=== PATIENT | male | born 1960 | race Hispanic/Latino ===

== ENCOUNTER 2019-03-15 15:06 | Inpatient (IN) | payer OTHER ==
[2019-03-15] MEDS ORDERED: NA CHLORIDE 0.9% 2,000 ML ONE (15:39)
[2019-03-15] MEDS ORDERED: CEFTRIAXONE 1000 MG/VIAL ONE ×2 (15:44→19:28)
[2019-03-15] MEDS ORDERED: NA CHLORIDE 0.9% 500 ML ONE (15:44)
[2019-03-15 15:49] LABS: Urine Blood NEGATIVE (NEG); Urine Glucose NEGATIVE (NEG); Urine Protein NEGATIVE (NEG); Urine Specific Gravity 1.015 (1.005-1.030)
[2019-03-15] MEDS ORDERED: FENTANYL CITR 100 MCG/2 ML ONE (15:51)
[2019-03-15] MEDS ORDERED: IBUPROFEN 200 MG TAB PO ONE (15:51)
[2019-03-15] MEDS ORDERED: Levofloxacin500mg IV 500 MG/100 ML BAG IV ONE (15:51)
[2019-03-15] MEDS ORDERED: IBUPROFEN 400 MG TAB ONE (15:51)
[2019-03-15 15:57] LABS: Absolute Lymphocytes (CBC) 0.9 K/uL (0.7-4.9); Basophils % 0.3 % (0-1.3); Hematocrit 41.3 % (39.6-49.0); MPV 9.2 fL (7.6-11.3); RBC Red Blood Cell Count 5.07 M/uL (4.33-5.43)
[2019-03-15 16:06] LABS: Protime INR 1.19
[2019-03-15 16:17] LABS: ALT/SGPT 47 U/L (12-78); AST/SGOT 20 U/L (15-37); Albumin 3.9 g/dL (3.4-5.0); Alkaline Phosphatase 100 U/L (45-117); BUN Blood Urea Nitrogen 14 mg/dL (7-18); Bicarbonate 25 mmol/L (21-32); Bilirubin Direct 0.2 mg/dL (0-0.2); Bilirubin Total 0.8 mg/dL (0.2-1.0); CKMB Creatine Kinase MB < 1.0 ng/mL (0.3-3.6); Creatine Phosphokinase 68 U/L (39-308); Glucose Level 200 mg/dL (74-106); Lipase 104 U/L (73-393); Potassium 3.6 mmol/L (3.5-5.1); Protein, Total 7.9 g/dL (6.4-8.2); Sodium Level 136 mmol/L (136-145); Troponin (Emerg Dept Use Only) < 0.02 ng/mL (0.0-0.045)
[2019-03-15 16:37] LABS: Urine Bacteria 20-50 /HPF (NONE SEEN); Urine Culture Reflex Order REFLEXED
--- NOTE | 2019-03-15 16:44 | RAD REPORT ---
EXAM DESCRIPTION: RAD - Chest Single View - 03/15/2019 4:15 pm CLINICAL HISTORY: Sepsis, fever COMPARISON: None. TECHNIQUE: AP portable chest image was obtained 1607 hours . FINDINGS: Lungs are clear. Heart and vasculature are normal. No measurable pleural effusion and no p neumothorax. No acute bony abnormality seen. No acute aortic findings suspected. IMPRESSION: No acute cardiopulmonary process.
--- NOTE | 2019-03-15 17:03 | RAD REPORT ---
EXAM DESCRIPTION: CT - Abdomen Pelvis W Contrast - 03/15/2019 4:46 pm CLINICAL HISTORY: urosepsis, abdominal pain COMPARISON: CT stone December 2016 TECHNIQUE: Biphasic, helical CT imaging of the abdomen and pelvis was performed following 100 ml non -ionic IV contrast. Oral contrast was given. All CT scans are performed using dose optimization technique as appropriate and may include automated exposure control or mA/KV adjustment according to patient size. FINDINGS: No suspicious findings in the lung bases. Mild diffuse fatty infiltration of the liver. No focal liver abnormality. Numerous granulomatous calc ifications in the spleen. No acute spleen or pancreatic process. Pancreatic parenchymal volume is dec reased in the body and tail. Gallbladder and biliary tree are also without suspicious finding. Symmetric renal function is seen with no hydronephrosis or suspicious renal mass. No pyelonephritis o r acute parenchymal process. Partially filled urinary bladder does not appear grossly abnormal. No cl early thickened or abnormal bladder torres. No bladder calculus within the lumen. There is calcificati on in the wall anterior dome. Prostate gland is enlarged and heterogeneous. There is a congested or e dematous appearance. No dilated bowel loops or bowel wall thickening. Sigmoid diverticulosis is present without diverticul itis. No free air, free fluid or inflammatory stranding. No hernia, mass or bulky lymphadenopathy. No suspicious bony findings. IMPRESSION: No pyelonephritis or acute renal parenchymal process. No definitive CT evidence for cystitis. Prostatitis is suspected and needs correlation with clinical findings and laboratory findings. No acute GI process. Liver shows fatty infiltration.
--- NOTE | 2019-03-15 17:17 | ER ---
Nurse's Notes [facility] Name: Jose Weaver Age: 58 yrs Sex: Male : 1960 Arrival Date: 03/15/2019 Time: 15:10 Bed 25 Private MD: Jaret Rao Diagnosis: Acute prostatitis;Sepsis, unspecified organism Presentation: 03/15 15:23 Presenting complaint: Patient states: burning with urination and off and on inability ss to void x 1 week. Fever that began last night. Transition of care: patient was not received from another setting of care. Onset of symptoms was March 05, 2019. Risk Assessment: Do you want to hurt yourself or someone else? Patient reports no desire to harm self or others. Initial Sepsis Screen: Does the patient meet any 2 criteria? Temp <36.0*C (96.8*F)) or > 38.3*C (100.9*F). HR > 90 bpm. Does the patient have a suspected source of infection? Yes: Dysuria/Frequency/Urgency/UTI. Care prior to arrival: None. 15:23 Method Of Arrival: Ambulatory ss 15:23 Acuity: JOHN 2 ss Historical: - Allergies: 15:22 No Known Allergies; ss - PMHx: 15:22 GERD; ss - PSHx: 15:22 None; ss - Immunization history:: Adult Immunizations up to date. - Social history:: Smoking status: Patient/guardian denies using tobacco. - Ebola Screening: : Patient denies exposure to infectious person Patient denies travel to an Ebola-affected area in the 21 days before illness onset. Screenin:00 Abuse screen: Denies threats or abuse. Denies injuries from another. Nutritional rv screening: No deficits noted. Tuberculosis screening: No symptoms or risk factors identified. Fall Risk None identified. Sepsis Screening: . Infection: Patient has suspected or documented infection. SIRS - Systemic Inflammatory Response Syndrome: 2 or more indicates positive screen: [temperature greater than or equal to 100.9F or less than or equal to 96.8F] [heart rate greater than 90 beats per minute] [respiratory rate is greater than 20 breaths per minute]. Assessment: 16:08 Reassessment: Kayleigh Tee NP notified of critical lab value. Lactate 2.2. ss 16:59 General: Appears in no apparent distress. comfortable, Behavior is calm, cooperative. rv Pain: Complains of pain in back. Neuro: Level of Consciousness is awake, alert, obeys commands, Oriented to person, place, time, situation. Cardiovascular: Patient's skin is warm and dry. Respiratory: Airway is patent. GI: No signs and/or symptoms were reported involving the gastrointestinal system. : Reports pain with urination. EENT: No signs and/or symptoms were reported regarding the EENT system. Derm: Skin is intact. Musculoskeletal: No signs and/or symptoms reported regarding the musculoskeletal system. 18:34 Reassessment: Patient appears in no apparent distress at this time. Patient and/or rv family updated on plan of care and expected duration. Pain level reassessed. Patient is alert, oriented x 3, equal unlabored respirations, skin warm/dry/pink. patient appears to be more comfortable after giving the IV bolus of fluids. Vital Signs: 15:21 BP 143 / 96; Pulse 112; Resp 20; Temp 102.3(O); Pulse Ox 95% on R/A; Weight 84.37 kg; ss Height 6 ft. 0 in. (182.88 cm); Pain 8/10; 16:23 Temp 100.2(O); rv 16:24 Pain 6/10; rv 16:25 BP 139 / 86; Pulse 105; Resp 26; Temp 100.2(O); Pulse Ox 99% on R/A; mh5 16:52 BP 138 / 74; Pulse 102; Resp 22; Temp 102.5(O); Pulse Ox 99% on R/A; mh5 18:00 BP 152 / 84; Pulse 99; Resp 18; Pulse Ox 99% on R/A; rv 18:30 BP 148 / 80; Pulse 103; Resp 18; Pulse Ox 99% on R/A; rv 15:21 Body Mass Index 25.23 (84.37 kg, 182.88 cm) ED Course: 15:10 Patient arrived in ED. mr 15:10 Jaret Rao MD is Private Physician. mr 15:23 Triage completed. ss 15:26 Kayleigh Tee F[facility]-C [facility]. snw 15:26 Pedro Guzmán MD is Attending Physician. snw 15:30 Inserted saline lock: 20 gauge in left antecubital area, using aseptic technique. Blood ss collected. 15:31 Roman Marcum, JUANJO is Primary Nurse. rv 15:45 Inserted saline lock: 22 gauge in right hand, using aseptic technique. Blood collected. ss 16:12 Radiology exam delayed due to lab results not completed at this time. (BUN/Creatinine). nj 16:17 Chest Single View XRAY In Process Unspecified. EDMS 16:25 Patient has correct armband on for positive identification. Bed in low position. Call mh5 light in reach. Side rails up X 1. Warm blanket given. environmental monitoring specialist on. Pulse ox on. NIBP on. 16:46 CT Abd/Pelvis - IV Contrast Only In Process Unspecified. EDMS 17:01 Splint/sling/ice applied as appropriate. Patient placed in the treatment room, on a rv stretcher, on cardiac catheterization technologist, on pulse oximetry, Patient notified of wait time. 17:16 Cristhian Frazier MD is Hospitalizing Provider. snw 18:34 No provider procedures requiring assistance completed. Patient admitted, IV remains in rv place. Administered Medications: 15:37 Drug: fentaNYL (PF) 25 mcg {Note: rass 0.} Route: IVP; Site: left antecubital; rv 16:24 Follow up: Pain 6/10 Adult; Response: No adverse reaction; Marked relief of symptoms; rv Pain is decreased; RASS: Alert and Calm (0) 15:45 Drug: NS 0.9% (30 ml/kg) 30 ml/kg Route: IV; Rate: bolus; Site: left antecubital; rv 15:53 Drug: Motrin 600 mg Route: PO; rv 16:23 Follow up: Temp 100.2 Oral; Response: Temperature is decreased rv 15:53 Drug: Rocephin 2 grams Route: IV; Rate: calculated rate; Site: left antecubital; rv 16:24 Follow up: IV Status: Completed infusion rv 16:22 Drug: LevaQUIN 500 mg Volume: 100 ml; Route: IVPB; Infused Over: 60 mins; Site: right rv hand; Outcome: 17:17 Decision to Hospitalize by Provider. snw 18:35 Admitted to Tele accompanied by tech, via wheelchair, room 406, with chart, Report rv called to Hollie GEIGER 18:35 Condition: good 18:35 Instructed on the need for admit. 18:35 Patient left the ED. rv Signatures: Dispatcher [employer] EDMS Kayleigh Tee, CANDIE-C EXTENSION DIVISION DIRECTOR-Paulw Elizabeth Cabrera Shelby, RN RN Som Knowles [place] [id number] Roman Marcum RN RN rv
--- NOTE | 2019-03-15 17:18 | EDPHYS ---
Physician Documentation [facility] Name: Jose Waever Age: 58 yrs Sex: Male : 1960 Arrival Date: 03/15/2019 Time: 15:10 Bed 25 Private MD: Jaret Rao ED Physician Pedro Guzmán HPI: 03/15 15:39 This 58 yrs old Male presents to ER via Ambulatory with complaints of Urinary snw Problem. 15:39 dysuria x 1 week, bodyaches and fever since last pm. Onset: The symptoms/episode snw began/occurred gradually, 1 week(s) ago, and became persistent. Severity of symptoms: At their worst the symptoms were moderate severe. The patient has not experienced similar symptoms in the past. sees Dr. Rao. Historical: - Allergies: 15:22 No Known Allergies; ss - PMHx: 15:22 GERD; ss - PSHx: 15:22 None; ss - Immunization history:: Adult Immunizations up to date. - Social history:: Smoking status: Patient/guardian denies using tobacco. - Ebola Screening: : Patient denies exposure to infectious person Patient denies travel to an Ebola-affected area in the 21 days before illness onset. ROS: 15:38 Eyes: Negative for injury, pain, redness, and discharge, ENT: Negative for injury, snw pain, and discharge, Neck: Negative for injury, pain, and swelling, Cardiovascular: Negative for chest pain, palpitations, and edema, Respiratory: Negative for shortness of breath, cough, wheezing, and pleuritic chest pain, Abdomen/GI: Negative for abdominal pain, nausea, vomiting, diarrhea, and constipation, Back: Negative for injury and pain, MS/Extremity: Negative for injury and deformity, Skin: Negative for injury, rash, and discoloration, Neuro: Negative for headache, weakness, numbness, tingling, and seizure, Psych: Negative for depression, anxiety, suicide ideation, homicidal ideation, and hallucinations. 15:38 Constitutional: Positive for body aches, fatigue, fever, malaise, poor PO intake. 15:38 : Positive for urinary symptoms, urinary frequency, small amounts, hematuria. Exam: 15:37 Head/Face: Normocephalic, atraumatic. Eyes: Pupils equal round and reactive to light, snw extra-ocular motions intact. Lids and lashes normal. Conjunctiva and sclera are non-icteric and not injected. Cornea within normal limits. Periorbital areas with no swelling, redness, or edema. ENT: Nares patent. No nasal discharge, no septal abnormalities noted. Tympanic membranes are normal and external auditory canals are clear. Oropharynx with no redness, swelling, or masses, exudates, or evidence of obstruction, uvula midline. Mucous membranes moist. Neck: Trachea midline, no thyromegaly or masses palpated, and no cervical lymphadenopathy. Supple, full range of motion without nuchal rigidity, or vertebral point tenderness. No Meningismus. Chest/axilla: Normal chest wall appearance and motion. Nontender with no deformity. No lesions are appreciated. 15:37 Respiratory: Lungs have equal breath sounds bilaterally, clear to auscultation and percussion. No rales, rhonchi or wheezes noted. No increased work of breathing, no retractions or nasal flaring. Abdomen/GI: Soft, non-tender, with normal bowel sounds. No distension or tympany. No guarding or rebound. No evidence of tenderness throughout. Back: No spinal tenderness. No costovertebral tenderness. Full range of motion. 15:37 Constitutional: The patient appears alert, awake, febrile, uncomfortable. 15:37 Cardiovascular: Rate: tachycardic, Pulses: no pulse deficits are appreciated, Edema: is not appreciated. 15:37 Skin: Appearance: Color: normal in color, Temperature: hot, Moisture: dry. 15:37 Neuro: Orientation: is normal, Mentation: is normal, Memory: is normal, seizure activity, is not displayed by the patient. Vital Signs: 15:21 BP 143 / 96; Pulse 112; Resp 20; Temp 102.3(O); Pulse Ox 95% on R/A; Weight 84.37 kg; ss Height 6 ft. 0 in. (182.88 cm); Pain 8/10; 16:23 Temp 100.2(O); rv 16:24 Pain 6/10; rv 16:25 BP 139 / 86; Pulse 105; Resp 26; Temp 100.2(O); Pulse Ox 99% on R/A; mh5 16:52 BP 138 / 74; Pulse 102; Resp 22; Temp 102.5(O); Pulse Ox 99% on R/A; mh5 18:00 BP 152 / 84; Pulse 99; Resp 18; Pulse Ox 99% on R/A; rv 18:30 BP 148 / 80; Pulse 103; Resp 18; Pulse Ox 99% on R/A; rv 15:21 Body Mass Index 25.23 (84.37 kg, 182.88 cm) ss MDM: 15:28 Patient medically screened. marcio 16:40 Data reviewed: vital signs, nurses notes. Data interpreted: Pulse oximetry: on room air snw is 99 %. Interpretation: normal. Counseling: I had a detailed discussion with the patient and/or guardian regarding: the historical points, exam findings, and any diagnostic results supporting the discharge/admit diagnosis, the presence of at least one elevated blood pressure reading (>120/80) during this emergency department visit, lab results, the need for further work-up and treatment in the hospital. Physician consultation: Cristhian Frazier MD was called at 16:41, regarding admission, to the medical/surgical unit. 03/15 15:28 Order name: Urine Culture [facility] 03/15 15:28 Order name: Basic Metabolic Panel; Complete Time: 16:18 snw 03/15 15:28 Order name: Blood Culture Adult (2) snw 03/15 15:28 Order name: CBC with Diff snw 03/15 15:28 Order name: Ckmb; Complete Time: 16:18 snw 03/15 15:28 Order name: CPK; Complete Time: 16:18 snw 03/15 15:28 Order name: Lactate; Complete Time: 16:09 snw 03/15 15:28 Order name: LFT's; Complete Time: 16:18 snw 03/15 15:28 Order name: Lipase; Complete Time: 16:18 snw 03/15 15:28 Order name: Procalcitonin; Complete Time: 16:38 snw 03/15 15:28 Order name: Protime (+inr); Complete Time: 16:38 snw 03/15 15:28 Order name: Ptt, Activated; Complete Time: 16:38 snw 03/15 15:28 Order name: Troponin (emerg Dept Use Only); Complete Time: 16:18 snw 03/15 15:28 Order name: Urine Microscopic Only; Complete Time: 16:38 snw 03/15 15:28 Order name: Chest Single View XRAY; Complete Time: 16:52 snw 03/15 15:28 Order name: Accucheck; Complete Time: 16:26 snw 03/15 15:28 Order name: Cardiac monitoring; Complete Time: 15:55 snw 03/15 15:28 Order name: EKG - Nurse/Tech; Complete Time: 15:55 snw 03/15 15:28 Order name: IV Saline Lock - Large Bore; Complete Time: 15:55 snw 03/15 15:28 Order name: Labs collected and sent; Complete Time: 15:55 snw 03/15 15:28 Order name: Psa Screen; Complete Time: 16:18 snw 03/15 15:38 Order name: Urine Dipstick--Ancillary (enter results); Complete Time: 15:52 bd 03/15 15:41 Order name: CT Abd/Pelvis - IV Contrast Only; Complete Time: 17:13 snw 03/15 15:50 Order name: Glucose, Ancillary Testing; Complete Time: 15:52 EDMS 03/15 18:31 Order name: Lactate Sepsis 2 HR Follow-up; Complete Time: 18:32 EDMS 03/15 15:28 Order name: O2 Per Protocol; Complete Time: 15:55 snw 03/15 15:28 Order name: O2 Sat Monitoring; Complete Time: 15:56 snw 03/15 15:28 Order name: Urine Dipstick-Ancillary (obtain specimen); Complete Time: 15:56 snw Administered Medications: 15:37 Drug: fentaNYL (PF) 25 mcg {Note: rass 0.} Route: IVP; Site: left antecubital; rv 16:24 Follow up: Pain 6/10 Adult; Response: No adverse reaction; Marked relief of symptoms; rv Pain is decreased; RASS: Alert and Calm (0) 15:45 Drug: NS 0.9% (30 ml/kg) 30 ml/kg Route: IV; Rate: bolus; Site: left antecubital; rv 15:53 Drug: Motrin 600 mg Route: PO; rv 16:23 Follow up: Temp 100.2 Oral; Response: Temperature is decreased rv 15:53 Drug: Rocephin 2 grams Route: IV; Rate: calculated rate; Site: left antecubital; rv 16:24 Follow up: IV Status: Completed infusion rv 16:22 Drug: LevaQUIN 500 mg Volume: 100 ml; Route: IVPB; Infused Over: 60 mins; Site: right rv hand; Disposition: 03/16 07:21 Co-signature as Attending Physician, Pedro Guzmán MD I agree with the assessment and marcio plan of care. Disposition: 03/15/19 17:17 Hospitalization ordered by Cristhian Frazier for Inpatient Admission. Preliminary diagnosis are Acute prostatitis, Sepsis, unspecified organism. - Bed requested for Telemetry/MedSurg (Inpatient). - Status is Inpatient Admission. rv - Condition is Stable. - Problem is new. - Symptoms have worsened. UTI on Admission? Yes Signatures: Dispatcher [employer] EDMS Pedro Guzmán MD MD cha Therrien, Shelly, RN HEMODIALYSIS CHARGE-C RN HEMODIALYSIS CHARGE-Paulw Nancy Segovia RN RN Hans Whittaker RN RN ja1 Roman Marcum RN RN rv Corrections: (The following items were deleted from the chart) 03/15 17:18 17:17 Hospitalization Ordered by Cristhian Frazier MD for Inpatient Admission. Preliminary ja1 diagnosis is Acute prostatitis; Sepsis, unspecified organism. Bed requested for Telemetry/MedSurg (Inpatient). Status is Inpatient Admission. Condition is Stable. Problem is new. Symptoms have worsened. UTI on Admission? Yes. snw 18:35 17:18 03/15/2019 17:17 Hospitalization Ordered by Cristhian Frazier MD for Inpatient rv Admission. Preliminary diagnosis is Acute prostatitis; Sepsis, unspecified organism. Bed requested for Telemetry/MedSurg (Inpatient). Status is Inpatient Admission. Condition is Stable. Problem is new. Symptoms have worsened. UTI on Admission? Yes. ja1
[2019-03-15 18:40] VITALS: BMI 26.4
[2019-03-15] MEDS ORDERED: NA CHLORIDE 0.9% 500 ML IV ONE (18:42)
[2019-03-15] MEDS ORDERED: ONDANSETRON 4 MG/2 ML VIAL IV PRN (18:42)
[2019-03-15] MEDS ORDERED: NA CHLORIDE 0.9% 200 ML IV ONE (19:28)
[2019-03-15] MEDS ORDERED: AZITHROMYCIN 500 MG INJ IVPB ONE (19:28)
[2019-03-15] MEDS: ACETAMINOPHEN 500 MG TAB PO PRN (19:45)
[2019-03-15] MEDS: NA CHLORIDE 0.9% 1,000 ML IV SCH (19:46)
[2019-03-15] MEDS ORDERED: CEFEPIME 2 GM VIAL ONE (20:14)
[2019-03-15] MEDS ORDERED: NA CHLORIDE 0.9% 100 ML IV ONE (20:17)
[2019-03-15] MEDS: SMZ./TMP. 800/160 MG TABLET PO SCH (20:18)
[2019-03-15 20:19] LABS: Blood Morphology Comment NOT SEEN (NOT SEEN); Platelet Estimate ADEQ; Urine White Blood Cell Casts OK
[2019-03-15] MEDS ORDERED: CEFEPIME 2 GM in NA CHLORIDE 0.9% 100 ML IV SCH (21:00)
[2019-03-15] MEDS ORDERED: HYDROCORTISONE SUC 100 MG INJ IV ONE (21:09)
[2019-03-15] MEDS ORDERED: ACETAMINOPHEN 500 MG TAB PO ONE (21:09)
--- NOTE | 2019-03-16 01:40 | HP ---
Date of Admission: 03/15/2019 Primary Care Physician: Jaret Rao M.D. Consultants: Dr. Kwok with Urology. Chief Complaint: Suprapubic pain, dysuria. History Of Present Illness: The patient is a 58-year-old male with past medical history of gastroeso phageal reflux disease, who was in his usual state of health until Friday. Patient had sudden ons et of suprapubic pain, dysuria, high fevers as high as 105. Patient also reports some urinary sympto ms other than the dysuria including nocturia and dribbling, which has been ongoing for the past sever al months. Patient otherwise denies any shortness of breath, chest pain, cough, sputum production. No trauma. No diarrhea or constipation. No blood in the stool. No hematuria. Patient does report some nausea, but no vomiting. The patient's symptoms are constant, moderate, progressively worsening . Patient came into the ER for further evaluation and found to be septic. He had a temperature of 1 02.7, respirations were 30. He was given some atenolol. His workup revealed elevated lactate 2.2. White blood cell count was 15.4. PSA was 16. UA was positive. CT scan of the abdomen showed no kehinde lonephritis or acute renal parenchymal process, prostatitis suspected. No acute GI process. Liver s hows fatty infiltration, also diverticulosis with acute diverticulitis. Patient was given IV fluid b olus with 30 mL/kg in the ED. Patient was then referred for admission and he was also given IV antib iotics. When seen in the ER, he was awake, alert, oriented x3, in some mild distress. Past Medical History: Gastroesophageal reflux disease. Past Surgical History: None. Allergies: NO KNOWN DRUG ALLERGIES. Medications: The patient takes heartburn pill, cannot remember the name at this time and over-the-co unter laxatives. Social History: Patient used to smoke heavily in the past, quit 8 years ago. No illicit drug use. No alcohol use. 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 Patient is , has children, independent in his ac tivities of daily living. Family History: Mother at a very early age of complications from bleeding ulcer. Father also d ied, had some heart problems. Review of Systems: An 11-point system reviewed, negative except as per HPI. Physical Examination: Vital Signs: Blood pressure 133/77, pulse 77, respirations 30, temperature 102.7. Patient received some Tylenol and ibuprofen. Temperature in the ER is 98.6, O2 100% on room air. General: Awake, alert, and oriented x3, in mild distress, ill-appearing male. HEENT: Normocephalic, atraumatic. PERRLA. EOMI. Dry mucous membranes. Oropharynx is clear. Conj unctivae are anicteric. Neck: Supple. No JVD. Trachea midline. CV: S1, S2. Regular rate and rhythm. Peripheral pulses present. Respiratory: Moving air well bilaterally. No wheezing or stridor. No use of accessory muscles. Gastrointestinal: Abdomen is distended. Tenderness to palpation in the suprapubic region. No rebou nd or guarding. Positive bowel sounds. Extremities: No clubbing, cyanosis, or edema. No calf tenderness. Neuro: Cranial nerves 2 through 12 intact grossly. No focal neurological deficit. Speech is normal . Skin: No rashes. Normal skin turgor. Psych: Mood is okay. Affect is full. Insight and judgment are good. Laboratory Data: UA shows negative nitrite, trace leukocyte esterase, 5-10 rbc's, 10-20 wbc, 20-50 b acteria. Sodium 136, potassium 3.6, chloride 104, CO2 of 25, BUN 14, creatinine 1.01, glucose 200, l actate 2.2, calcium 8, PSA 16. Procalcitonin less than 0.05. INR 1.19. WBC 15.4, H and H 13.6 and 41.3, platelets 147, neutrophils 89%. Imaging Studies: Chest x-ray is negative. No acute findings. CT scan of the abdomen shows no pyelo nephritis or acute renal parenchymal process. No definitive CT evidence for cystitis. Prostatitis i s suspected. Needs correlation with clinical findings. No acute GI process. Liver shows fatty infi ltration. Patient has sigmoid diverticulosis without diverticulitis. No hydronephrosis. Assessment And Plan: A 58-year-old male with, 1.Sepsis likely secondary to prostatitis. We will start on sepsis guidelines with broad-spectrum IV antibiotics. We will obtain cultures including blood and urine cultures. Patient received 30 mL/kg bolus. We will monitor I's and O's. Lactate is elevated. Procalcitonin is normal. We will repeat lactate after IV fluid bolus. Patient will need to have sepsis focus assessment within 6 hours. Th e patient has elevated white count 15,000 with neutrophilia, has elevated lactate, tachypneic, temper ature of 102.7. No end-organ damage. 2.Acute prostatitis. PSA is elevated. CT scan shows findings consistent with prostatitis, possible additional cystitis as well. Continue with IV antibiotics. Urology, Dr. Kwok, has been consulted. 3.Acute cystitis with hematuria, likely secondary to above. We will continue on IV antibiotics and follow up on urine cultures. 4.Gastroesophageal reflux disease, we will continue PPI. 5.Hyperglycemia, no history of diabetes. We will check hemoglobin A1c. Patient is at risk due to o besity. 6.Obesity, BMI is over 25, counseled. 7.Fatty liver disease. Patient will need outpatient followup and workup by GI. Patient counseled r egarding complications of fatty liver disease including nonalcoholic fatty liver disease, leading to liver cirrhosis and need for hepatic transplantation. If he does not improve his diet and exercise r egimen, he will need serial imaging studies to monitor his fatty liver disease progression. Plan: Admit patient to Med-Surg, place as inpatient, start on sepsis bundle. Length of stay greater than 2 midnights. RENY Voice ID: [id number]
[2019-03-16] MEDS: PANTOPRAZOLE 40MG TABLET PO SCH (05:06)
[2019-03-16] MEDS: NA CHLORIDE 0.9% 1,000 ML IV SCH ×4 (05:06→22:06)
--- NOTE | 2019-03-16 08:02 | P.PN ---
Date of Service: 03/15/19 Sepsis note Subjective: Patient spiked a temp of a 102. However, he is warm and he has good pulses. Clinically appears to be doing well. After Tylenol and Hydrocortisone his temp is down to 100.2. Physical Examination Vitals: Afebrile vital signs are stable Physical exam: AAO x3 HEENT exam: Within normal limit Cardiovascular exam: Regular rate rhythm no murmurs Lungs: clear bilaterally Pulses: Normal capillary refill Skin: Warm Diagnostic data has been reviewed ASST: 1. UTI with prostatitis and sepsis PLAN: 1. Continue with current plan of care 2. Continue with IV antibiotics 3. Continue with IV hydration 4. Continue with antipyretics 5. Urology consultation 6. GI and DVT prophylax
[2019-03-16] MEDS: CEFEPIME/SWI 2gm 2 GM/20 ML SYR IV SCH ×2 (08:29→20:07)
[2019-03-16] MEDS: SMZ./TMP. 800/160 MG TABLET PO SCH ×2 (08:31→20:07)
[2019-03-16] MEDS: ACETAMINOPHEN 500 MG TAB PO PRN ×2 (08:31→16:51)
[2019-03-16] MEDS: TRAMADOL HCL 50 MG TAB PO PRN (08:44)
--- NOTE | 2019-03-16 12:22 | EKG ---
Test Date: 2019-03-15 Test Time: 16:03:41 Picture Framer: NAOMY MEASUREMENT RESULTS: Intervals: Rate: 106 GA: 136 QRSD: 110 QT: 308 QTc: 409 [place]: P: 62 GA: 136 QRS: 67 T: -22 INTERPRETIVE STATEMENTS: Sinus tachycardia T wave abnormality, consider inferior ischemia Abnormal ECG No previous ECG available for comparison Electronically Signed On 03-16-19 12:19:35 Z [employer] MAINFRAME SYSTEMS PROGRAMMER by Gene Moreland
--- NOTE | 2019-03-16 14:05 | P.PN ---
Subjective Date of Service: 03/16/19 Chief Complaint: Dysuria and fever Patient reports significant dysuria. He was febrile does morning up to 100.8. He also complains of suprapubic pain with micturition. Physical Examination - Vital Signs Temperature: 99.6 F Blood Pressure: 127/80 Pulse: 93 Respirations: 18 Pulse Ox (%): 98 - Physical Exam General: Alert, In no apparent distress, Oriented x3 HEENT: Mucous membr. moist/pink Neck: Supple Respiratory: Clear to auscultation bilaterally, Normal air movement Cardiovascular: No edema, Regular rate/rhythm, Normal S1 S2, No murmurs Gastrointestinal: Normal bowel sounds, Hypoactive, Soft and benign, Non- distended, No tenderness Musculoskeletal: No erythema, No tenderness Integumentary: No rashes Neurological: Normal speech, Normal strength at 5/5 x4 extr - Studies Laboratory Data (last 24 hrs) 03/15/19 15:32: PT 14.0 H, INR 1.19, APTT 30.7 03/15/19 15:32: WBC 15.4 H, Hgb 13.6, Hct 41.3, Plt Count 147 L 03/15/19 15:32: Sodium 136, Potassium 3.6, BUN 14, Creatinine 1.01, Glucose 200 H, Total Bilirubin 0.8, AST 20, ALT 47, Alkaline Phosphatase 100, Lipase 104 Assessment And Plan - Current Problems (Diagnosis) (1) Acute cystitis Current Visit: Yes Status: Acute (2) Acute prostatitis Current Visit: Yes Status: Acute (3) Sepsis Current Visit: Yes Status: Acute (4) GERD (gastroesophageal reflux disease) Current Visit: Yes Status: Acute (5) Hyperglycemia Current Visit: Yes Status: Acute - Plan Continue current antibiotics-IV cefepime and oral bactrim. Follow urine culture. Adequate hydration recommended. Pain management as needed Hemoglobin A1c is 5.9, patient is not diabetic. Continue Protonix for GERD.
--- NOTE | 2019-03-16 19:40 | CON ---
History Of Present Illness: Pleasant gentleman, 58-year-old, felt likely has history of lower urinar y tract symptomatology, also history of kidney stones. He has never seen anyone in the past for [place] shan stone issue. He passed all his stones. He came in because he has been having some UTI symptoms w ith severe pain, dysuria, and high fevers. CAT scan revealed some inflammation around the prostate w ith the concern of acute prostatitis. Also has some urinary dribbling and very slow stream. CAT sca n showed no pyelonephritis, but suspected prostatitis. No acute GI or any signs of diverticulosis or colitis. He was admitted for antibiotics. Allergies: NO KNOWN DRUG ALLERGIES. Past Medical History: GERD. Past Surgical History: None. Medications: The heartburn pill, cannot remember the names. Social History: Smoked heavily in the past, quit 8 years ago. No illicit drug use. No alcohol use. Patient works in [employer]. , has children, independent. Family History: Mother at a very early age of complications from ulcer. Father also from some heart problems. Review of Systems: Ten-point review of systems as mentioned per HPI. Physical Examination: Vital Signs: Patient is afebrile, stable. Family was present in the room. Temperature 99.6, pulse 93, respiratory rate 18, BP 127/80, and 98% saturation. HEENT: Atraumatic, normocephalic. Neck: Supple. Cardiovascular: Normal S1, S2. Respiratory: Clear. Gastrointestinal: Nontender, not distended. Genitourinary: Both testicles were descended. Phallus normal. MADELAINE: About a 40 g filled prostate, felt benign. No signs of acute prostatitis here. Laboratory Review: White count of 15.4, H and H 13 and 41, platelet count 141. Coag studies normal. Chemistry, sodium 136, potassium 3.6, chloride 104, carbon dioxide 25, BUN 14, creatinine 1.0, dillan mated GFR 76. Urine study shows 5-10 rbc's, 10-20 wbc's, 20-50 bacteria. The patient is currently taking cefepime 2 g each dose. Assessment: Urinary tract infection, rule out acute prostatitis. Plan: We will go ahead and start the patient on tamsulosin to help with his voiding symptoms. Jamila moody, patient is on cefepime and Bactrim. PB/MODL Voice ID: [id number] Report ID: [id number]
[2019-03-16] MEDS: TAMSULOSIN 0.4 MG SR CAP PO SCH (20:07)
[2019-03-16] MEDS ORDERED: PHENAZOPYRIDINE 100MG TAB PO ONE (20:51)
[2019-03-17] MEDS: PANTOPRAZOLE 40MG TABLET PO SCH (05:45)
[2019-03-17] MEDS: NA CHLORIDE 0.9% 1,000 ML IV SCH ×2 (05:45→13:29)
[2019-03-17] MEDS: TRAMADOL HCL 50 MG TAB PO PRN ×2 (05:47→17:20)
[2019-03-17 05:58] LABS: Absolute Lymphocytes (CBC) 0.9 K/uL (0.7-4.9); Basophils % 0.1 % (0-1.3); Hematocrit 34.4 % (39.6-49.0); Lymphocytes % 7.4 % (15.3-44.8); MPV 9.4 fL (7.6-11.3)
[2019-03-17 06:14] LABS: BUN Blood Urea Nitrogen 7 mg/dL (7-18); Bicarbonate 28 mmol/L (21-32); Glucose Level 124 mg/dL (74-106); Potassium 3.2 mmol/L (3.5-5.1); Sodium Level 138 mmol/L (136-145)
[2019-03-17] MEDS: SMZ./TMP. 800/160 MG TABLET PO SCH ×2 (08:39→20:51)
[2019-03-17] MEDS ORDERED: POTASSIUM CL SA 10 MEQ TAB PO ONE ×2 (09:04→16:00)
[2019-03-17] MEDS: CEFEPIME/SWI 2gm 2 GM/20 ML SYR IV SCH (09:27)
[2019-03-17] MEDS: Meropenem 1,000 MG in NA CHLORIDE 0.9% 100 ML IV SCH ×2 (13:00→17:07)
[2019-03-17] MEDS: ACETAMINOPHEN 500 MG TAB PO PRN (13:41)
--- NOTE | 2019-03-17 15:30 | P.PN ---
Subjective Date of Service: 03/17/19 Chief Complaint: Dysuria and fever Patient still reports dysuria. No recorded fever today Urine culture is growing ESBL E. coli. Physical Examination - Vital Signs Temperature: 98.8 F Blood Pressure: 127/81 Pulse: 84 Respirations: 18 Pulse Ox (%): 97 - Physical Exam General: Alert, In no apparent distress, Oriented x3 HEENT: Mucous membr. moist/pink Neck: Supple Respiratory: Clear to auscultation bilaterally, Normal air movement Cardiovascular: No edema, Regular rate/rhythm, Normal S1 S2 Gastrointestinal: Normal bowel sounds, Soft and benign, Non-distended, No tenderness Musculoskeletal: No swelling Integumentary: No rashes Neurological: Normal speech - Studies Microbiology Data (last 24 hrs): 03/15/19 15:30 Clean Catch Urine [place] Count - Final BETWEEN 10,000 & 100,000 CFU/ML 03/15/19 15:30 Clean Catch Urine - Final Escherichia Coli Esbl Assessment And Plan - Current Problems (Diagnosis) (1) Acute cystitis Current Visit: Yes Status: Acute (2) Acute prostatitis Current Visit: Yes Status: Acute (3) Sepsis Current Visit: Yes Status: Acute (4) GERD (gastroesophageal reflux disease) Current Visit: Yes Status: Acute (5) Hyperglycemia Current Visit: Yes Status: Acute - Plan Change antibiotics to IV meropenem Continue IV hydration PICC line for outpatient IV antibiotic. Considering Ertapenem for outpatient therapy. Urology-Dr. Kwok's input appreciated. Consult infectious disease placed. Case discussed with Dr. Little. Patient slated for 7-10 days of IV antibiotics. Pain management as needed Hemoglobin A1c is 5.9, patient is not diabetic. Continue Protonix for GERD.
--- NOTE | 2019-03-17 19:13 | PN ---
Subjective: Patient is stable. Urine culture came back showing ESBL, sensitive to cefoxitin, cefote maldonado, Timentin, piperacillin/tazobactam, meropenem, and amikacin. Plan: Plan is for the patient to go home with a PICC line and on meropenem for 7 days. Follow up wi th me after that to evaluate the lower urinary tract for BPH. In the meanwhile will continue to take his tamsulosin as prescribed. LINDA/EVELIA Voice ID: [id number] Report ID: [id number]
--- NOTE | 2019-03-17 19:28 | CON ---
History Of Present Illness: This is a 58-year-old male coming in with urinary tract infection. Kathy ent has been getting these infection for last 3 years and normally treated by a primary care doctor a s outpatient and has been cured, but this time patient came in again with similar problem and was fou nd to have an ESBL urine infection with E coli 10 to [id number]. Patient was also found to have benign p rostatic hypertrophy, which is being treated by Urology team. Patient denies any headache, nausea, v omiting, chest pain, abdominal pain, constipation, or diarrhea. Having burning sensation on urinatio n only. Past Medical History: Hypertension, cardiac stent, otherwise unremarkable. Social History: Heavy tobacco use, quit 8 years ago. No alcohol use. Family History: Noncontributory. Medications: For heartburn and high blood pressure, otherwise none. No other medication. Allergies: NO KNOWN DRUG ALLERGIES. Review of Systems: A 10-point review was performed. Physical Examination: General: This is a 58-year-old male, lying in bed, not in any acute cardiopulmonary distress. Vital Signs: Temperature 98, pulse 84, respiration 18, blood pressure 127/81. HEENT: Unremarkable. Neck: Supple. Lungs: Clear to auscultation. Heart: S1, S2. Regular. Abdomen: Soft, nontender. Bowel sounds present. Extremity: No edema. Laboratory Data: Shows WBC is 12.4 down from 15.4, hemoglobin 11.9, platelets are 118. Patient is currently being treated with meropenem and Bactrim. Assessment And Plan: A 58-year-old male, Mr. Weaver, coming in with urinary tract infection secon leona to extended spectrum beta-lactamases Escherichia coli, currently being treated with Bactrim and meropenem. We will recommend to stop Bactrim, as patient platelets are going down. Patient to madi nue meropenem or carbapenem like drug for a total of 7 days. We will continue meropenem for a total of 7 days. Continue repeat urinalysis afterwards. Patient to be treated for benign prostatic hypert rophy as outpatient, which is most likely reason of patient getting recurrent urinary tract infection . We will follow the patient closely. Thank you Dr. Bar for consult. DANICA/EVELIA Voice ID: [id number] Report ID: [id number]
[2019-03-17] MEDS: TAMSULOSIN 0.4 MG SR CAP PO SCH (20:51)
[2019-03-18] MEDS: Meropenem 1,000 MG in NA CHLORIDE 0.9% 100 ML IV SCH ×3 (01:11→16:00)
[2019-03-18] MEDS: NA CHLORIDE 0.9% 1,000 ML IV SCH ×5 (01:11→20:45)
[2019-03-18] MEDS: PANTOPRAZOLE 40MG TABLET PO SCH (05:50)
[2019-03-18] MEDS: ACETAMINOPHEN 500 MG TAB PO PRN ×3 (06:10→21:12)
[2019-03-18 06:35] LABS: BUN Blood Urea Nitrogen 7 mg/dL (7-18); Bicarbonate 29 mmol/L (21-32); Glucose Level 118 mg/dL (74-106); Potassium 3.4 mmol/L (3.5-5.1); Sodium Level 137 mmol/L (136-145)
[2019-03-18] MEDS ORDERED: POTASSIUM CL SA 10 MEQ TAB PO ONE ×2 (06:52→14:41)
[2019-03-18] MEDS: SMZ./TMP. 800/160 MG TABLET PO SCH ×2 (08:57→20:45)
--- NOTE | 2019-03-18 10:17 | RAD REPORT ---
EXAM DESCRIPTION: Chest Single View CLINICAL HISTORY: PICC Placement. COMPARISON: None. FINDINGS: The heart size is within normal limits. No consolidation, pleural effusion, or pneumothora x is seen. No acute bony findings. There is a right upper extremity PICC with the tip at the cavoatri al junction. IMPRESSION: Right upper extremity PICC tip at cavoatrial junction. No pneumothorax. Electronically signed by: Oziel Melgar MD 03/18/2019 12:12 AM LIBRARIAN HEAD Due to temporary technical issues with the PACS/Fluency reporting system, reports are being signed by the in house radiologist as a courtesy to ensure prompt reporting. The interpreting radiologist is f ully responsible for the content of the report.
--- NOTE | 2019-03-18 14:52 | P.DS ---
Admission Date: 03/15/19 Discharge Date: 03/21/19 Disposition: [place] [facility] Discharge Condition: GOOD Reason for Admission: Dysuria and fever - Problems (1) Acute cystitis Current Visit: Yes Status: Acute Qualifiers: Hematuria presence: without hematuria Qualified Code(s): N30.00 - Acute cystitis without hematuria (2) Acute prostatitis Current Visit: Yes Status: Acute (3) Sepsis Current Visit: Yes Status: Acute (4) GERD (gastroesophageal reflux disease) Current Visit: Yes Status: Acute (5) Hyperglycemia Current Visit: Yes Status: Acute Brief History of Present Illness: 58-year-old gentleman with a history of GERD, history of nocturia and dribbling which has been present for several months, presented to the emergency department with a complaint of dysuria, suprapubic pain and fever. Patient reports fever up to 105. In the ED, UA noted to be positive, his APPLIQUER elevated to 16, had leukocytosis and elevated lactate meeting the criteria for sepsis. CT abdomen and pelvis done reported normal appearing kidneys but enlarged and heterogeneous prostate with edematous appearance which could suggest prostatitis. Patient was admitted for further management of UTI with sepsis. Hospital Course: Patient admitted to the medical floor and treated with IV Cefepime and Bactrim. His urine culture grew ESBL E. coli sensitive to meropenem. Antibiotics was changed to meropenem. Infectious Disease was consulted, patient was seen by Dr. Little recommended 7 days of IV antibiotics. PICC line has been placed. Patient completed 4 days of meropenem as inpatient. He is discharged with 3 more days of Ertapenem via the PICC line with home health to complete 7 days of treatment. He was evaluated by Dr. Kwok, patient diagnosed with BPH and started on tamsulosin. He will follow with Dr. Kwok for further assessment within 2 weeks. Vital Signs/Physical Exam: Temp Pulse Resp BP Pulse Ox 98.2 F 78 18 123/73 97 03/18/19 12:21 03/18/19 12:21 03/18/19 12:21 03/18/19 12:21 03/18/19 12:21 General: Alert, In no apparent distress, Oriented x3 HEENT: Mucous membr. moist/pink Neck: Supple, JVD not distended Respiratory: Clear to auscultation bilaterally, Normal air movement Cardiovascular: No edema, Normal pulses, Regular rate/rhythm, Normal S1 S2, No murmurs Capillary refill: <2 Seconds Gastrointestinal: Normal bowel sounds, Soft and benign, Non-distended, No tenderness Musculoskeletal: No swelling, No erythema Integumentary: No rashes Neurological: Normal speech, Normal strength at 5/5 x4 extr Laboratory Data at Discharge: WBC 12.4 K/uL (4.3-10.9) H D 03/17/19 05:31 Hgb 11.9 g/dL (13.6-17.9) L 03/17/19 05:31 Hct 34.4 % (39.6-49.0) L D 03/17/19 05:31 Plt Count 118 K/uL (152-406) L 03/17/19 05:31 PT 14.0 SECONDS (9.5-12.5) H 03/15/19 15:32 INR 1.19 03/15/19 15:32 APTT 30.7 SECONDS (24.3-36.9) 03/15/19 15:32 Sodium 137 mmol/L (136-145) 03/18/19 06:00 Potassium 3.6 mmol/L (3.5-5.1) 03/18/19 13:05 BUN 7 mg/dL (7-18) 03/18/19 06:00 Creatinine 0.62 mg/dL (0.55-1.3) 03/18/19 06:00 Glucose 118 mg/dL (74-106) H 03/18/19 06:00 Total Bilirubin 0.8 mg/dL (0.2-1.0) 03/15/19 15:32 AST 20 U/L (15-37) 03/15/19 15:32 ALT 47 U/L (12-78) 03/15/19 15:32 Alkaline Phosphatase 100 U/L (45-117) 03/15/19 15:32 Lipase 104 U/L (73-393) 03/15/19 15:32 Home Medications: Pantoprazole [Protonix Tab*] 40 mg PO [id number] 03/15/19 Tamsulosin [Flomax*] 0.4 mg PO BEDTIME #30 cap 03/18/19 New Medications: Tamsulosin [Flomax*] 0.4 mg PO BEDTIME #30 cap Diet: Regular Activity: Ad mishel Followup: Gerald Kwok MD [ACTIVE - CAN ADMIT] - 1-2 Weeks Time spent managing pt's care (in minutes): 45
--- NOTE | 2019-03-18 20:27 | PN ---
The patient has ESBL in his urine. He will be going home on possible ertapenem or meropenem. He genet uld also go home on his tamsulosin. He is going to follow up with the doctor in [place], urologis on this plan. DICK Voice ID: [id number] Report ID: [id number]
[2019-03-18] MEDS: TAMSULOSIN 0.4 MG SR CAP PO SCH (20:45)
--- NOTE | 2019-03-18 20:53 | PN ---
Date of Progress Note: 03/18/2019 Subjective: Patient is standing at the bed, not in any acute distress. Denies any headache, nausea, vomiting, chest pain, abdominal pain, constipation. Continue to have burning sensation at this poin t especially and he urinates. Objective: VITAL SIGNS: Temperature 98.2, pulse 78, respirations 18, blood pressure 123/73. No marcio nges in examination. Lab Data: From yesterday; WBC 12.4, platelets are 118. Patient is currently on ertapenem and Bactri m. Has E coli ESBL in the urine. Assessment And Plan: Patient with Escherichia coli extended-spectrum beta-lactamase urinary tract in fection, most likely secondary to enlarged prostate causing obstruction and dysuria. Continue antibi otic and supportive care, total of 7 days and repeat UA and have prostate by urologist. We will foll ow the patient closely. DANICA/EVELIA Voice ID: [id number] Report ID: [id number]
[2019-03-19] MEDS: Meropenem 1,000 MG in NA CHLORIDE 0.9% 100 ML IV SCH ×3 (00:56→16:01)
[2019-03-19] MEDS: TRAMADOL HCL 50 MG TAB PO PRN (00:57)
[2019-03-19] MEDS: PANTOPRAZOLE 40MG TABLET PO SCH (05:18)
[2019-03-19 05:53] LABS: BUN Blood Urea Nitrogen 8 mg/dL (7-18); Bicarbonate 29 mmol/L (21-32); Glucose Level 104 mg/dL (74-106); Potassium 3.7 mmol/L (3.5-5.1); Sodium Level 139 mmol/L (136-145)
[2019-03-19] MEDS: NA CHLORIDE 0.9% 1,000 ML IV SCH ×2 (06:00→20:39)
[2019-03-19] MEDS ORDERED: POTASSIUM 25 MEQ EFFERV TAB PO ONE (06:39)
[2019-03-19] MEDS: SMZ./TMP. 800/160 MG TABLET PO SCH ×2 (09:00→20:39)
--- NOTE | 2019-03-19 18:39 | P.PN ---
Subjective Date of Service: 03/19/19 Chief Complaint: Dysuria and fever Patient reports the dysuria has resolved No recorded fever for the last 48 hrs He is eager to go home. Physical Examination - Vital Signs Temperature: 97.9 F Blood Pressure: 129/81 Pulse: 81 Respirations: 18 Pulse Ox (%): 97 - Physical Exam General: Alert, In no apparent distress, Oriented x3 HEENT: Mucous membr. moist/pink Neck: Supple, JVD not distended Respiratory: Clear to auscultation bilaterally, Normal air movement Cardiovascular: No edema, Regular rate/rhythm, Normal S1 S2 Capillary refill: <2 Seconds Gastrointestinal: Normal bowel sounds, Soft and benign, Non-distended, No tenderness Musculoskeletal: No swelling Integumentary: No rashes Neurological: Normal speech, Normal strength at 5/5 x4 extr Assessment And Plan - Current Problems (Diagnosis) (1) Acute cystitis Current Visit: Yes Status: Acute Qualifiers: Hematuria presence: without hematuria Qualified Code(s): N30.00 - Acute cystitis without hematuria (2) Acute prostatitis Current Visit: Yes Status: Acute (3) Sepsis Current Visit: Yes Status: Acute (4) GERD (gastroesophageal reflux disease) Current Visit: Yes Status: Acute (5) Hyperglycemia Current Visit: Yes Status: Acute - Plan Change antibiotics to IV meropenem Discontinue IV fluid Patient seen by Dr. Little. PICC line place for 7 days of IV Ertapenem. Urology-Dr. Kwok's input appreciated. He will follow with patient in the office within the next couple of weeks. Continue Protonix for GERD. Arrangement for outpatient IV antibiotics and home health is pending insurance authorization.
[2019-03-19] MEDS: TAMSULOSIN 0.4 MG SR CAP PO SCH (20:39)
[2019-03-20] MEDS: Meropenem 1,000 MG in NA CHLORIDE 0.9% 100 ML IV SCH ×4 (00:16→23:43)
[2019-03-20] MEDS: NA CHLORIDE 0.9% 1,000 ML IV SCH ×2 (02:42→05:18)
[2019-03-20] MEDS: PANTOPRAZOLE 40MG TABLET PO SCH (05:18)
[2019-03-20 05:48] LABS: BUN Blood Urea Nitrogen 9 mg/dL (7-18); Bicarbonate 27 mmol/L (21-32); Glucose Level 101 mg/dL (74-106); Potassium 3.6 mmol/L (3.5-5.1); Sodium Level 141 mmol/L (136-145)
[2019-03-20] MEDS: SMZ./TMP. 800/160 MG TABLET PO SCH ×2 (08:49→20:20)
[2019-03-20] MEDS ORDERED: POTASSIUM CL SA 10 MEQ TAB PO ONE (09:00)
--- NOTE | 2019-03-20 11:02 | P.PN ---
Subjective Date of Service: 03/20/19 Chief Complaint: Dysuria and fever Subjective: No new changes No issues overnight. Patient currently has no complain. He is waiting for arrangement for home health for IV antibiotics Physical Examination - Vital Signs Temperature: 97.8 F Blood Pressure: 136/81 Pulse: 79 Respirations: 16 Pulse Ox (%): 95 - Physical Exam General: Alert, In no apparent distress, Oriented x3 HEENT: Mucous membr. moist/pink Neck: Supple Respiratory: Clear to auscultation bilaterally, Normal air movement Cardiovascular: No edema, Regular rate/rhythm, Normal S1 S2 Gastrointestinal: Normal bowel sounds, Soft and benign, Non-distended, No tenderness Musculoskeletal: No swelling Integumentary: No rashes Assessment And Plan - Current Problems (Diagnosis) (1) Acute cystitis Current Visit: Yes Status: Acute Qualifiers: Hematuria presence: without hematuria Qualified Code(s): N30.00 - Acute cystitis without hematuria (2) Acute prostatitis Current Visit: Yes Status: Acute (3) Sepsis Current Visit: Yes Status: Acute (4) GERD (gastroesophageal reflux disease) Current Visit: Yes Status: Acute (5) Hyperglycemia Current Visit: Yes Status: Acute - Plan Continue IV meropenem Patient seen by Dr. Little. PICC line place for 7 days of IV Ertapenem. Urology-Dr. Kwok's input appreciated. He will follow with patient in the office within the next couple of weeks. Continue Protonix for GERD. 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
[2019-03-20] MEDS: ACETAMINOPHEN 500 MG TAB PO PRN (20:20)
[2019-03-20] MEDS: TAMSULOSIN 0.4 MG SR CAP PO SCH (20:20)
[2019-03-21] MEDS: PANTOPRAZOLE 40MG TABLET PO SCH (05:10)
[2019-03-21 05:33] LABS: Absolute Lymphocytes (CBC) 0.8 K/uL (0.7-4.9); Basophils % 1.3 % (0-1.3); Hematocrit 38.2 % (39.6-49.0); Lymphocytes % 20.3 % (15.3-44.8); MPV 8.6 fL (7.6-11.3); RBC Red Blood Cell Count 4.75 M/uL (4.33-5.43)
[2019-03-21 05:34] LABS: BUN Blood Urea Nitrogen 12 mg/dL (7-18); Bicarbonate 29 mmol/L (21-32); Glucose Level 122 mg/dL (74-106); Sodium Level 139 mmol/L (136-145)
[2019-03-21] MEDS: SMZ./TMP. 800/160 MG TABLET PO SCH (09:25)
[2019-03-21] MEDS: Meropenem 1,000 MG in NA CHLORIDE 0.9% 100 ML IV SCH (09:26)
[2019-03-21 09:36] VITALS: O2SAT 95
--- NOTE | 2019-03-21 12:05 | P.PN ---
Subjective Date of Service: 03/21/19 Chief Complaint: Dysuria and fever Subjective: No new changes No issues overnight. Patient currently has no complain. He is waiting for arrangement for home health for IV antibiotics Physical Examination - Vital Signs Temperature: 97.1 F Blood Pressure: 121/73 Pulse: 87 Respirations: 18 Pulse Ox (%): 95 - Physical Exam General: Alert, In no apparent distress, Oriented x3 HEENT: Mucous membr. moist/pink Neck: Supple Respiratory: Clear to auscultation bilaterally, Normal air movement Cardiovascular: No edema, Regular rate/rhythm, Normal S1 S2 Gastrointestinal: Normal bowel sounds, Soft and benign, No tenderness Musculoskeletal: No swelling Integumentary: No rashes Neurological: Normal speech, Normal strength at 5/5 x4 extr - Studies Microbiology Data (last 24 hrs): 03/15/19 15:40 Blood - Blood Aerobic Blood Culture - Final No growth in 5 days. 03/15/19 15:40 Blood - Blood Anaerobic Blood Culture - Final No growth in 5 days. 03/15/19 15:32 Blood - Blood Aerobic Blood Culture - Final No growth in 5 days. 03/15/19 15:32 Blood - Blood Anaerobic Blood Culture - Final No growth in 5 days. Assessment And Plan - Current Problems (Diagnosis) (1) Acute cystitis Current Visit: Yes Status: Acute Qualifiers: Hematuria presence: without hematuria Qualified Code(s): N30.00 - Acute cystitis without hematuria (2) Acute prostatitis Current Visit: Yes Status: Acute (3) Sepsis Current Visit: Yes Status: Acute (4) GERD (gastroesophageal reflux disease) Current Visit: Yes Status: Acute (5) Hyperglycemia Current Visit: Yes Status: Acute - Plan Continue IV meropenem Patient seen by Dr. Little. PICC line place for 7 days of IV Ertapenem. He will follow with Dr. Kwok in the office within the next couple of weeks. Continue Protonix for GERD. public health social worker is assisting with Arrangement for outpatient IV antibiotics and home health.
--- NOTE | 2019-03-21 15:59 | P.PN ---
Subjective Date of Service: 03/18/19 Chief Complaint: Dysuria and fever Subjective: No new changes No issues overnight. Patient currently has no complain. He is waiting for arrangement for home health for IV antibiotics Physical Examination - Vital Signs Temperature: 97.1 F Blood Pressure: 121/73 Pulse: 87 Respirations: 18 Pulse Ox (%): 95 - Physical Exam General: Alert, In no apparent distress, Oriented x3 HEENT: Mucous membr. moist/pink Neck: Supple, JVD not distended Respiratory: Clear to auscultation bilaterally, Normal air movement Cardiovascular: No edema, Regular rate/rhythm, Normal S1 S2 Gastrointestinal: Normal bowel sounds, Soft and benign, Non-distended, No tenderness Musculoskeletal: No swelling Integumentary: No rashes - Studies Microbiology Data (last 24 hrs): 03/15/19 15:40 Blood - Blood Aerobic Blood Culture - Final No growth in 5 days. 03/15/19 15:40 Blood - Blood Anaerobic Blood Culture - Final No growth in 5 days. 03/15/19 15:32 Blood - Blood Aerobic Blood Culture - Final No growth in 5 days. 03/15/19 15:32 Blood - Blood Anaerobic Blood Culture - Final No growth in 5 days. Assessment And Plan - Current Problems (Diagnosis) (1) Acute cystitis Current Visit: Yes Status: Acute Qualifiers: Hematuria presence: without hematuria Qualified Code(s): N30.00 - Acute cystitis without hematuria (2) Acute prostatitis Current Visit: Yes Status: Acute (3) Sepsis Current Visit: Yes Status: Acute (4) GERD (gastroesophageal reflux disease) Current Visit: Yes Status: Acute (5) Hyperglycemia Current Visit: Yes Status: Acute - Plan Continue IV meropenem Patient seen by Dr. Little. PICC line place for a total 7 days of IV Ertapenem. He will follow with Dr. Kwok in the office within the next couple of weeks. Continue Protonix for GERD. 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
[2019-03-21] MEDS ORDERED: ERTAPENEM NA 1 GM in NA CHLORIDE 0.9% 100 ML IVPB ONE (16:00)
[2019-03-21 16:48] VITALS: BP 143/78; TEMP 96.8
== END 2019-03-21 17:43 | disposition home health service (06) | DRG 872 ==
LOC: ER 15:06 → ERHOLD 16:47 → 4TH 18:20
PROVIDERS: ADMIT Family Medicine; ATTEND Family Medicine
DX: A41.9 Sepsis, unspecified organism (principal); N30.00 Acute cystitis without hematuria; N41.0 Acute prostatitis; Z16.12 Extended spectrum beta lactamase (ESBL) resistance; K21.9 Gastro-esophageal reflux disease without esophagitis; R73.9 Hyperglycemia, unspecified; B96.20 Unspecified Escherichia coli [E. coli] as the cause of diseases classified elsewhere; Z87.891 Personal history of nicotine dependence; K76.0 Fatty (change of) liver, not elsewhere classified; E66.9 Obesity, unspecified; Z68.26 Body mass index [BMI] 26.0-26.9, adult
CPT/HCPCS: 36415; 71045; 74177; 80048; 80076; 81003; 81015; 82550; 82553; 82947; 83036; 83605; 83690; 84132; 84145; 84484; 85025; 85610; 85730; 87040; 87077; 87086; 87088; 87186; 93005; 94760; 96365; 96375; 99285; G0103; J0456; J0692; J1335; J1720; J3010; J7030; J7040; Q9967

== ENCOUNTER 2019-04-08 09:04 | Emergency (ER) | payer OTHER ==
[2019-04-08 10:44] LABS: Urine Bacteria 20-50 /HPF (NONE SEEN); Urine Culture Reflex Order REFLEXED
--- NOTE | 2019-04-08 10:47 | ER ---
Nurse's Notes [facility] Name: Jose Weaver Age: 59 yrs Sex: Male : 1960 Arrival Date: 04/08/2019 Time: 09:08 Bed 18 Private MD: Jaret Rao Diagnosis: Acute cystitis Presentation: 04/08 09:21 Presenting complaint: Patient states: admitted to hospital a month ago for urosepsis. ss Pt reports he felt much better, however the burning with urination never completely went away. Pt followed up with urologist in [facility] who rechecked his urine and said everything was fine. Patient has another follow up appointment Friday in [facility], but reports that the pain when he urinates is becoming unbearable. Transition of care: patient was not received from another setting of care. Onset of symptoms is unknown. Risk Assessment: Do you want to hurt yourself or someone else? Patient reports no desire to harm self or others. Initial Sepsis Screen: Does the patient meet any 2 criteria? No. Patient's initial sepsis screen is negative. Does the patient have a suspected source of infection? Yes: Dysuria/Frequency/Urgency/UTI. Care prior to arrival: None. 09:21 Method Of Arrival: Ambulatory ss 09:21 Acuity: JOHN 3 ss Historical: - Allergies: 09:23 No Known Allergies; ph - PMHx: 09:23 GERD; UTI; Sepsis; ph - PSHx: 09:23 None; ph - Immunization history:: Adult Immunizations unknown. - Social history:: Smoking status: Patient/guardian denies using tobacco, but has a distant history of tobacco abuse. - Ebola Screening: : No symptoms or risks identified at this time. Screenin:29 Abuse screen: Denies threats or abuse. Denies injuries from another. Nutritional ph screening: No deficits noted. Tuberculosis screening: No symptoms or risk factors identified. Fall Risk None identified. Assessment: 09:45 General: Appears in no apparent distress. comfortable, well groomed, Behavior is calm, ph cooperative, appropriate for age, Denies fever, feeling ill. Pain: Complains of pain in pelvis. Neuro: Level of Consciousness is awake, alert, obeys commands, Oriented to person, place, time, situation. Cardiovascular: Capillary refill < 3 seconds in bilateral fingers Patient's skin is warm and dry. Respiratory: Airway is patent Respiratory effort is even, unlabored, Respiratory pattern is regular, symmetrical. GI: No signs and/or symptoms were reported involving the gastrointestinal system. Patient currently denies diarrhea, nausea, vomiting. : Reports burning with urination, urinary frequency, Denies pain in suprapubic area in lower back. Derm: Skin is intact, Skin is pink, warm \T\ dry. Musculoskeletal: Circulation, motion, and sensation intact. Range of motion: intact in all extremities. 10:27 Reassessment: Patient appears in no apparent distress at this time. Patient and/or ph family updated on plan of care and expected duration. Pain level reassessed. Patient is alert, oriented x 3, equal unlabored respirations, skin warm/dry/pink. Pt resting comfortably, provided decaf coffee and crackers, tolerating well, awaiting lab results. Vital Signs: 09:20 BP 133 / 88; Pulse 74; Resp 16; Temp 97.4(TE); Pulse Ox 97% on R/A; Weight 88.45 kg; ss Height 6 ft. 0 in. (182.88 cm); Pain 3/10; 10:25 BP 119 / 79; Pulse 76; Resp 18; Pulse Ox 96% on R/A; ph 09:20 Body Mass Index 26.45 (88.45 kg, 182.88 cm) ED Course: 09:08 Patient arrived in ED. mr 09:08 Jaret Rao MD is Private Physician. mr 09:15 [facility] jr8 09:15 Pedro Guzmán MD is Attending Physician. jr8 09:20 Arm band placed on right wrist. ss 09:21 Surekha Mark, JUANJO is Primary Nurse. ph 09:25 Triage completed. ss 10:28 Patient has correct armband on for positive identification. Bed in low position. Call ph light in reach. Side rails up X 1. Pulse ox on. NIBP on. Door closed. Noise minimized. PO fluids given. Head of bed elevated. 11:00 No provider procedures requiring assistance completed. Patient did not have IV access ph during this emergency room visit. Administered Medications: 11:08 Drug: Bactrim (160 mg-800 mg (DS) 1 tablet Route: PO; ph 11:09 Follow up: Response: No adverse reaction; Medication administered at discharge. ph 11:08 Drug: Pyridium 200 mg Route: PO; ph 11:09 Follow up: Response: No adverse reaction; Medication administered at discharge. ph Outcome: 10:47 Discharge ordered by MD. belcher 11:09 Patient left the ED. ph 11:09 Discharged to home ambulatory. ph 11:09 Condition: good 11:09 Discharge instructions given to patient, Instructed on discharge instructions, follow up and referral plans. medication usage, Demonstrated understanding of instructions, follow-up care, medications, Prescriptions given X 2. Signatures: Elizabeth Cabrera Shelby, RN RN Sam Arevalo PA PA jr8 Surekha Mark RN RN
--- NOTE | 2019-04-08 10:48 | EDPHYS ---
Physician Documentation [facility] Name: Jose Weaver Age: 59 yrs Sex: Male : 1960 Arrival Date: 04/08/2019 Time: 09:08 Bed 18 Private MD: Jaret Rao ED Physician Pedro Guzmán HPI: 04/08 09:47 This 59 yrs old Male presents to ER via Ambulatory with complaints of Urinary jr8 Problem. 09:47 The patient presents with urinary symptoms, dysuria, urinary frequency. Onset: The jr8 symptoms/episode began/occurred gradually, 1 week(s) ago. Modifying factors: The symptoms are alleviated by nothing, the symptoms are aggravated by urinating. Associated signs and symptoms: The patient has no apparent associated signs or symptoms. Severity of symptoms: At their worst the symptoms were mild, in the emergency department the symptoms are unchanged. The patient has not experienced similar symptoms in the past. The patient has been recently seen by a physician:. Patient stated that he had urosepsis a few weeks ago. Recovered well from that. Started to have burning in urine again. Saw use urologist. No bacteria in urine at that time. Was put on Macrobid and finished that. Stated that the burning is getting worse along with frequency. Denies any other complaints . Historical: - Allergies: 09:23 No Known Allergies; ph - PMHx: 09:23 GERD; UTI; Sepsis; ph - PSHx: :23 None; ph - Immunization history:: Adult Immunizations unknown. - Social history:: Smoking status: Patient/guardian denies using tobacco, but has a distant history of tobacco abuse. - Ebola Screening: : No symptoms or risks identified at this time. ROS: 09:47 Eyes: Negative for injury, pain, redness, and discharge, ENT: Negative for injury, jr8 pain, and discharge, Neck: Negative for injury, pain, and swelling, Cardiovascular: Negative for chest pain, palpitations, and edema, Respiratory: Negative for shortness of breath, cough, wheezing, and pleuritic chest pain, Abdomen/GI: Negative for abdominal pain, nausea, vomiting, diarrhea, and constipation, Back: Negative for injury and pain, MS/Extremity: Negative for injury and deformity, Skin: Negative for injury, rash, and discoloration, Neuro: Negative for headache, weakness, numbness, tingling, and seizure. 09:47 : Positive for urinary symptoms, burning with urination. Exam: 09:47 Eyes: Pupils equal round and reactive to light, extra-ocular motions intact. Lids and jr8 lashes normal. Conjunctiva and sclera are non-icteric and not injected. Cornea within normal limits. Periorbital areas with no swelling, redness, or edema. ENT: Nares patent. No nasal discharge, no septal abnormalities noted. Tympanic membranes are normal and external auditory canals are clear. Oropharynx with no redness, swelling, or masses, exudates, or evidence of obstruction, uvula midline. Mucous membranes moist. Neck: Trachea midline, no thyromegaly or masses palpated, and no cervical lymphadenopathy. Supple, full range of motion without nuchal rigidity, or vertebral point tenderness. No Meningismus. Cardiovascular: Regular rate and rhythm with a normal S1 and S2. No gallops, murmurs, or rubs. Normal PMI, no JVD. No pulse deficits. Respiratory: Lungs have equal breath sounds bilaterally, clear to auscultation and percussion. No rales, rhonchi or wheezes noted. No increased work of breathing, no retractions or nasal flaring. Abdomen/GI: Soft, non-tender, with normal bowel sounds. No distension or tympany. No guarding or rebound. No evidence of tenderness throughout. Back: No spinal tenderness. No costovertebral tenderness. Full range of motion. Skin: Warm, dry with normal turgor. Normal color with no rashes, no lesions, and no evidence of cellulitis. MS/ Extremity: Pulses equal, no cyanosis. Neurovascular intact. Full, normal range of motion. Neuro: Awake and alert, GCS 15, oriented to person, place, time, and situation. Cranial nerves II-XII grossly intact. Motor strength 5/5 in all extremities. Sensory grossly intact. Cerebellar exam normal. Normal gait. Vital Signs: 09:20 BP 133 / 88; Pulse 74; Resp 16; Temp 97.4(TE); Pulse Ox 97% on R/A; Weight 88.45 kg; ss Height 6 ft. 0 in. (182.88 cm); Pain 3/10; 10:25 BP 119 / 79; Pulse 76; Resp 18; Pulse Ox 96% on R/A; ph 09:20 Body Mass Index 26.45 (88.45 kg, 182.88 cm) ss MDM: 09:16 Patient medically screened. [facility] 10:46 Data reviewed: vital signs, nurses notes, lab test result(s), and as a result, I will jr8 discharge patient. Data interpreted: Pulse oximetry: on room air is 96 %. Interpretation: normal. Counseling: I had a detailed discussion with the patient and/or guardian regarding: the historical points, exam findings, and any diagnostic results supporting the discharge/admit diagnosis, lab results, the need for outpatient follow up, a urologist, to return to the emergency department if symptoms worsen or persist or if there are any questions or concerns that arise at home. 04/08 09:26 Order name: Urine Microscopic Only [facility] 04/08 09:31 Order name: Urine Dipstick--Ancillary (enter results) 04/08 10:44 Order name: Urine Microscopic Only; Complete Time: 10:46 [facility] 04/08 11:07 Order name: Urine Dipstick-Ancillary [facility] 04/08 09:26 Order name: Urine Dipstick-Ancillary (obtain specimen); Complete Time: 09:34 [facility] Administered Medications: 11:08 Drug: Bactrim (160 mg-800 mg (DS) 1 tablet Route: PO; ph 11:09 Follow up: Response: No adverse reaction; Medication administered at discharge. ph 11:08 Drug: Pyridium 200 mg Route: PO; ph 11:09 Follow up: Response: No adverse reaction; Medication administered at discharge. ph Disposition: 04/08/19 10:47 Discharged to Home. Impression: Acute cystitis. - Condition is Stable. - Discharge Instructions: Urinary Tract Infection, Adult. - Prescriptions for Pyridium 200 mg Oral Tablet - take 1 tablet by ORAL route every 8 hours for 3 days; 9 tablet. Bactrim DS 800- 160 mg Oral Tablet - take 1 tablet by ORAL route every 12 hours for 7 days; 14 tablet. - Medication Reconciliation Form, Thank You Letter, Antibiotic Education, Prescription Opioid Use, Work release form form. - Follow up: Private Physician; When: 5 - 6 days; Reason: Recheck today's complaints, Continuance of care, Re-evaluation by your physician. - Problem is new. - Symptoms are unchanged. Addendum: 04/12/2019 10:33 Co-signature as Attending Physician, Pedro Guzmán MD I agree with the assessment and c reyes plan of care. Signatures: Dispatcher [employer] EDPedro Kumar MD MD cha Smirch, Shelby, RN RN Sam Arevalo PA PA jr8 Surekha Mark, JUANJO RN ph Corrections: (The following items were deleted from the chart) 04/08 11:09 10:47 04/08/2019 10:47 Discharged to Home. Impression: Acute cystitis. Condition is ph Stable. Forms are Medication Reconciliation Form, Thank You Letter, Antibiotic Education, Prescription Opioid Use. Follow up: Private Physician; When: 5 - 6 days; Reason: Recheck today's complaints, Continuance of care, Re-evaluation by your physician. Problem is new. Symptoms are unchanged. jr8
[2019-04-08] MEDS ORDERED: PHENAZOPYRIDINE 100MG TAB PO ONE (10:57)
[2019-04-08] MEDS ORDERED: SMZ./TMP. 800/160 MG TABLET ONE (10:57)
[2019-04-08 11:06] LABS: Urine Blood TRACE (NEG); Urine Glucose NEGATIVE (NEG); Urine Protein 1+ (NEG)
[2019-04-08 11:19] VITALS: TEMP 97.4
[2019-04-08 11:20] VITALS: BP 119/79; O2SAT 96
== END 2019-04-08 11:09 | disposition home or self-care (01) ==
LOC: ER 09:04
DX: N30.00 Acute cystitis without hematuria (principal)
CPT/HCPCS: 81003; 81015; 87086; 87088; 99283

== ENCOUNTER 2020-07-16 18:27 | Emergency (ER) | payer OTHER ==
[2020-07-16 19:44] LABS: Urine Blood 1+ (NEG); Urine Glucose NEGATIVE (NEG); Urine Protein NEGATIVE (NEG); Urine Specific Gravity 1.025 (1.005-1.030)
--- NOTE | 2020-07-16 20:21 | RAD REPORT ---
EXAM DESCRIPTION: CT - Stone Protocol - 07/16/2020 8:07 pm CLINICAL HISTORY: Flank pain. FLANK PAIN COMPARISON: Abdomen Pelvis W Contrast dated 03/15/2019 TECHNIQUE: Axial images were obtained without oral or IV contrast. Lack of contrast limits solid org an and vascular assessment. The [id number] spans the entirety of the system partially obscuring uppermost abdomen and lung bases. Coronal reformatted images were obtained and reviewed. All CT scans are performed using dose optimization technique as appropriate and may include automated exposure control or mA/KV adjustment according to patient size. FINDINGS: The lower lung gallardo are clear. Imaged portions of the liver and spleen show no suspicious findings on non-contrast imaging. The panc reas and adrenal glands are normal. No pathologic lymphadenopathy in the abdomen or pelvis. 7 mm stone distal left ureter at the level of the left UVJ noted. Small right renal calculi are prese nt. No bowel obstruction, free air, free fluid or abscess. Normal appendix noted.Sigmoid diverticulosis c tj without diverticulitis. No significant bony abnormality. IMPRESSION: 7 mm calculus distal left ureter with no significant left-sided hydronephrosis. Additional right nephrolithiasis.
[2020-07-16] MEDS ORDERED: HYDROCODONE/APAP 10/325 TAB ONE (20:52)
[2020-07-16] MEDS ORDERED: TAMSULOSIN 0.4 MG SR CAP ONE (20:52)
[2020-07-16] MEDS ORDERED: KETOROLAC 30 MG/ML INJ ONE (20:52)
--- NOTE | 2020-07-16 22:06 | EDPHYS ---
Physician Documentation [facility] Name: Jose Weaver Age: 60 yrs Sex: Male : 1960 Arrival Date: 07/16/2020 Time: 18:32 Bed 19 Private MD: Jaret Rao ED Physician Albert Galan HPI: 07/16 22:33 This 60 yrs old Male presents to ER via Ambulatory with complaints of Flank kb Pain - right, Back Pain. 22:31 Pt reports right low back pain that radiates to buttock and down thigh. . kb 22:33 The patient presents with pain that is acute, with no known mechanism of injury. The kb symptoms are located in the low back. Onset: The symptoms/episode began/occurred 5 day(s) ago. The pain radiates to the right gluteus wanda and right hamstring. Associated signs and symptoms: Pertinent positives: urinary frequency. The problem was sustained without known cause. Modifying factors: The patient symptoms are alleviated by laying down, the patient symptoms are aggravated by any movement. Severity of symptoms: At their worst the symptoms were moderate, in the emergency department the symptoms are unchanged. The patient has not experienced similar symptoms in the past. The patient has not recently seen a physician. Historical: - Allergies: 19:22 No Known Allergies; ca1 - PMHx: 19:22 GERD; UTI; Sepsis; ca1 - PSHx: 19:22 None; ca1 - Immunization history:: Flu vaccine is up to date. - Social history:: Smoking status: Patient/guardian denies using tobacco, the patient reports quitting approximately 12 years ago. ROS: 22:30 Constitutional: Negative for fever, chills, and weight loss, Cardiovascular: Negative kb for chest pain, palpitations, and edema, Respiratory: Negative for shortness of breath, cough, wheezing, and pleuritic chest pain, Abdomen/GI: Negative for abdominal pain, nausea, vomiting, diarrhea, and constipation, MS/Extremity: Negative for injury and deformity, Skin: Negative for injury, rash, and discoloration, Neuro: Negative for headache, weakness, numbness, tingling, and seizure. 22:30 Back: Positive for pain at rest, pain with movement, radiated pain, of the right low back. 22:30 : Positive for urinary frequency, small amounts. Exam: 22:29 Constitutional: This is a well developed, well nourished patient who is awake, alert, kb and in no acute distress. Head/Face: Normocephalic, atraumatic. Cardiovascular: Regular rate and rhythm with a normal S1 and S2. No gallops, murmurs, or rubs. No pulse deficits. Respiratory: Lungs have equal breath sounds bilaterally, clear to auscultation. No rales, rhonchi or wheezes noted. No increased work of breathing, no retractions or nasal flaring. Abdomen/GI: Soft, non-tender, with normal bowel sounds. No distension. No guarding or rebound. No evidence of tenderness throughout. Skin: Warm, dry with normal turgor. Normal color with no rashes, no lesions, and no evidence of cellulitis. MS/ Extremity: Pulses equal, no cyanosis. Neurovascular intact. Full, normal range of motion. Neuro: Awake and alert, GCS 15, oriented to person, place, time, and situation. Cranial nerves II-XII grossly intact. Moves all extremities. Sensory grossly intact. Cerebellar exam normal. Normal gait. 22:29 Back: pain, that is moderate, of the right low back, ROM is painful, with all movement, CVA tenderness, is absent. Vital Signs: 19:18 BP 135 / 85; Pulse 68; Resp 16 S; Temp 97.1(TE); Pulse Ox 97% on R/A; Weight 84.37 kg ca1 (R); Height 6 ft. 0 in. (182.88 cm) (R); Pain 7/10; 21:00 BP 145 / 80; Pulse 68; Resp 16; Pulse Ox 96% on R/A; zb 21:57 BP 140 / 94; Pulse 63; Resp 16; Pulse Ox 94% on R/A; zb 19:18 Body Mass Index 25.23 (84.37 kg, 182.88 cm) ca1 MDM: 19:28 Patient medically screened. kb 22:29 Data reviewed: vital signs, nurses notes. Data interpreted: Pulse oximetry: on room air kb is 94 %. Interpretation: normal. Counseling: I had a detailed discussion with the patient and/or guardian regarding: the historical points, exam findings, and any diagnostic results supporting the discharge/admit diagnosis, lab results, radiology results, the need for outpatient follow up, a family practitioner, a urologist, to return to the emergency department if symptoms worsen or persist or if there are any questions or concerns that arise at home. 07/16 19:40 Order name: Urine Dipstick--Ancillary (enter results) tt3 07/16 19:44 Order name: Urine Dipstick-Ancillary; Complete Time: 19:47 EDMS 07/16 19:27 Order name: CT Stone Protocol kb 07/16 20:22 Order name: CT; Complete Time: 20:22 EDMS 07/16 19:27 Order name: Urine Dipstick-Ancillary (obtain specimen); Complete Time: 19:39 kb Administered Medications: 20:24 CANCELLED (Duplicate Order): Magnesium Sulfate 1 grams IVPB once over 30 mins kb 20:24 CANCELLED (Duplicate Order): TORadol - Ketorolac 15 mg IVP once kb 20:41 Drug: TORadol 60 mg Route: IM; Site: right deltoid; mg2 21:55 Follow up: Response: No adverse reaction; Pain is decreased; RASS: Alert and Calm (0) zb 20:42 Drug: Flomax 0.4 mg Route: PO; mg2 21:54 Follow up: Response: No adverse reaction; Pain is decreased; RASS: Alert and Calm (0) zb 20:42 Drug: Taylor 10 mg-325 mg 1 tabs Route: PO; mg2 21:55 Follow up: Response: No adverse reaction; Marked relief of symptoms; Pain is decreased; zb RASS: Alert and Calm (0) Disposition: 07/17 05:56 Co-signature as Attending Physician, Albert Galan MD. [email or web address] Disposition: 07/16/20 22:05 Discharged to Home. Impression: Sciatica, right side, Calculus of kidney and ureter. - Condition is Stable. - Discharge Instructions: Kidney Stones, [id number], Sciatica, [id number], Dietary Guidelines to Help Prevent Kidney Stones. - Prescriptions for Zofran 4 mg Oral Tablet - take 1 tablet by ORAL route every 6 hours As needed; 20 tablet. Flomax 0.4 mg Oral Capsule, Sust. Release 24 hr - take 1 capsule by ORAL route once daily 1/2 hour following the same meal each day; 10 capsule. Cyclobenzaprine 10 mg Oral Tablet - take 1 tablet by ORAL route every 8 hours As needed; 21 tablet. Diclofenac Sodium 75 mg Oral Tablet, Delayed Release (E.C.) - take 1 tablet by ORAL route 2 times per day As needed; 30 tablet. - Medication Reconciliation Form, Thank You Letter, Antibiotic Education, Prescription Opioid Use form. - Follow up: Emergency Department; When: As needed; Reason: Worsening of condition. Follow up: Private Physician; When: 2 - 3 days; Reason: Recheck today's complaints, Continuance of care, Re-evaluation by your physician. Signatures: Dispatcher [employer] EDMS Maria A Stewart, CANDIE-C CANDIE-CkJalen Lyon, RN RN mg2 Taylor Chaney RN RN ca1 Albert Galan MD MD [facility] Jessica Carlson RN zb Corrections: (The following items were deleted from the chart) 07/16 20:24 20:23 Magnesium Sulfate 1 grams IVPB once over 30 mins ordered. ace bello 20:24 20:23 TORadol - Ketorolac 15 mg IVP once ordered. ace blelo 20:33 20:23 IV Saline Lock ordered. ace granados 20:33 20:23 Labs collected and sent ordered. ace granados 22:44 22:05 07/16/2020 22:05 Discharged to Home. Impression: Sciatica, right side; Calculus mg2 of kidney and ureter. Condition is Stable. Forms are Medication Reconciliation Form, Thank You Letter, Antibiotic Education, Prescription Opioid Use. Follow up: Emergency Department; When: As needed; Reason: Worsening of condition. Follow up: Private Physician; When: 2 - 3 days; Reason: Recheck today's complaints, Continuance of care, Re-evaluation by your physician. kb
--- NOTE | 2020-07-16 22:06 | ER ---
Nurse's Notes [facility] Name: Jose Weaver Age: 60 yrs Sex: Male : 1960 Arrival Date: 07/16/2020 Time: 18:32 Bed 19 Private MD: Jaret Rao Diagnosis: Sciatica, right side;Calculus of kidney and ureter Presentation: 07/16 19:18 Chief complaint: Patient states: R lower back pain x 5 days, getting worse and now ca1 constant, radiates to the R leg to the R foot. Reports urinary frequency. Reports HX of Kidney stones. Coronavirus screen: Client denies travel out of the [place] in the last 14 days. At this time, the client does not indicate any symptoms associated with coronavirus-19. Ebola Screen: Patient negative for fever greater than or equal to 101.5 degrees Fahrenheit, and additional compatible Ebola Virus Disease symptoms Patient denies exposure to infectious person. Patient denies travel to an Ebola-affected area in the 21 days before illness onset. No symptoms or risks identified at this time. Initial Sepsis Screen: Does the patient meet any 2 criteria? No. Patient's initial sepsis screen is negative. Does the patient have a suspected source of infection? No. Patient's initial sepsis screen is negative. Risk Assessment: Do you want to hurt yourself or someone else? Patient reports no desire to harm self or others. Onset of symptoms was July 16, 2020. 19:18 Method Of Arrival: Ambulatory ca1 19:18 Acuity: JOHN 3 ca1 Triage Assessment: 22:40 General: Behavior is calm. zb Historical: - Allergies: 19:22 No Known Allergies; ca1 - PMHx: 19:22 GERD; UTI; Sepsis; ca1 - PSHx: 19:22 None; ca1 - Immunization history:: Flu vaccine is up to date. - Social history:: Smoking status: Patient/guardian denies using tobacco, the patient reports quitting approximately 12 years ago. Screenin:58 Abuse screen: Denies threats or abuse. Denies injuries from another. Nutritional zb screening: No deficits noted. Tuberculosis screening: No symptoms or risk factors identified. Fall Risk None identified. Assessment: 19:34 General: Appears in no apparent distress. uncomfortable. Pain: Complains of pain in zb right low back Pain radiates to right leg Pain currently is 8 out of 10 on a pain scale. Pain began 5 days ago. Alleviated by repositioning, Aggravated by rest or prolong positioning. Also complains of decreased mobility. Neuro: Level of Consciousness is awake, alert, obeys commands, Oriented to person, place, time, situation, Denies numbness. Cardiovascular: Capillary refill < 3 seconds in bilateral Patient's skin is warm and dry. Respiratory: Airway is patent Respiratory effort is even, unlabored, Respiratory pattern is regular, symmetrical. GI: Abdomen is round. : Urine is light green and slightly cloudy. EENT: No signs and/or symptoms were reported regarding the EENT system. Derm: Skin is intact, is healthy with good turgor, Skin is dry, Skin is normal, Skin temperature is warm. Musculoskeletal: Range of motion: intact in all extremities. 20:03 Reassessment: Patient appears in no apparent distress at this time. Patient and/or zb family updated on plan of care and expected duration. Pain level reassessed. Patient is alert, oriented x 3, equal unlabored respirations, skin warm/dry/pink. 21:58 Reassessment: Patient appears in no apparent distress at this time. Patient and/or zb family updated on plan of care and expected duration. Pain level reassessed. Patient is alert, oriented x 3, equal unlabored respirations, skin warm/dry/pink. Patient states feeling better. Patient states symptoms have improved. Vital Signs: 19:18 BP 135 / 85; Pulse 68; Resp 16 S; Temp 97.1(TE); Pulse Ox 97% on R/A; Weight 84.37 kg ca1 (R); Height 6 ft. 0 in. (182.88 cm) (R); Pain 7/10; 21:00 BP 145 / 80; Pulse 68; Resp 16; Pulse Ox 96% on R/A; zb 21:57 BP 140 / 94; Pulse 63; Resp 16; Pulse Ox 94% on R/A; zb 19:18 Body Mass Index 25.23 (84.37 kg, 182.88 cm) ca1 ED Course: 18:32 Patient arrived in ED. am2 18:32 Jaret Rao MD is Private Physician. am2 19:21 Triage completed. ca1 19:22 Arm band placed on right wrist. ca1 19:26 Jessica Carlson RN is Primary Nurse. zb 19:26 [facility] A Stewart [facility]C [facility] kb 19:26 Albert Galan MD is Attending Physician. kb 19:42 Urine Dipstick--Ancillary (enter results) Sent. zb 21:58 Patient has correct armband on for positive identification. Bed in low position. Call zb light in reach. Side rails up X 1. Pulse ox on. NIBP on. Door closed. Noise minimized. 22:40 No provider procedures requiring assistance completed. Patient did not have IV access zb during this emergency room visit. Administered Medications: 20:24 CANCELLED (Duplicate Order): Magnesium Sulfate 1 grams IVPB once over 30 mins kb 20:24 CANCELLED (Duplicate Order): TORadol - Ketorolac 15 mg IVP once kb 20:41 Drug: TORadol 60 mg Route: IM; Site: right deltoid; mg2 21:55 Follow up: Response: No adverse reaction; Pain is decreased; RASS: Alert and Calm (0) zb 20:42 Drug: Flomax 0.4 mg Route: PO; mg2 21:54 Follow up: Response: No adverse reaction; Pain is decreased; RASS: Alert and Calm (0) zb 20:42 Drug: Elmira 10 mg-325 mg 1 tabs Route: PO; mg2 21:55 Follow up: Response: No adverse reaction; Marked relief of symptoms; Pain is decreased; zb RASS: Alert and Calm (0) Outcome: 22:05 Discharge ordered by . kb 22:44 Discharged to home ambulatory. mg2 22:44 Condition: good 22:44 Discharge instructions given to patient, Instructed on discharge instructions, follow up and referral plans. medication usage, Demonstrated understanding of instructions, follow-up care, medications, Prescriptions given X 4. 22:44 Patient left the ED. mg2 Signatures: Maria A Stewart FNP-C ADMINISTRATIVE SERVICES DIRECTOR-Angie Craig am2 Jalen Shelby RN RN mg2 Taylor Chaney RN RN ca1 Jessica Carlson RN RN zb
[2020-07-17 00:25] VITALS: TEMP 97.1
[2020-07-17 00:27] VITALS: BP 140/94; O2SAT 94
== END 2020-07-16 22:44 | disposition home or self-care (01) ==
LOC: ER 18:27
DX: M54.31 Sciatica, right side (principal); N20.2 Calculus of kidney with calculus of ureter
CPT/HCPCS: 74176; 76377; 81003; 96372; 99284

== ENCOUNTER 2021-10-18 23:23 | Emergency (ER) | payer OTHER ==
--- OUTSIDE RECORDS SUMMARY | 2021-10-18 23:26 | XMS REPORT | Continuity of Care Document ---
:1960 Author Organization [facility] t Address Critical access hospital [address] [place] [address] Care Team Providers Name Role Phone PCP, DOES NOT HAVE A Primary Care Physician Unavailable Morgan GEIGER, T Attending Clinician Unavailable Only, Db Test Attending Clinician Unavailable Tato BAG VALVER Attending Clinician TATO Attending Clinician Unavailable Doctor Unassigned, Name Attending Clinician Unavailable Candido GEIGER Attending Clinician Unavailable Payers Payer Name Policy Type Policy Number Effective Date Expiration Date S ource Problems Condition Condition Condition Status Onset Resolution Last Treating Co mments Source Name Details Category Date Date Treatment Clinician Date No known No known Disease Unive rs active active ity of problems problems [facility] Allergies, Adverse Reactions, Alerts Allergy Allergy Status Severity Reaction(s) Onset Inactive Treating Comm ents Source Name Type Date Date Clinician NO KNOWN Drug Active Univers ALLERGIE Class ity of S [facility] Social History Social Habit Start Date Stop Date Quantity Comments Source Exposure to Not sure [facility] SARS-CoV-2 [facility] (event) Branch Alcohol intake 2017-04-21 2017-04-21 [facility] 00:00:00 00:00:00 non-drinker of [facility] alcohol [place] (finding) Tobacco use and 2017-04-14 2017-04-14 Never used Universit y of exposure 00:00:00 00:00:00 [facility] Sex Assigned At [birth year] Universit y of 00:00:00 00:00:00 [facility] Smoking Status Start Date Stop Date Source Never smoker [facility] Medications Ordered Filled Start Stop Current Ordering Indication Dosage Frequency Signature Comments Components Source Medication Medication Date Date Medication? Clinician (SIG) Name Name ESOMEPRAZOL 2016-05 Yes Take 40 mg Univers E MAGNESIUM 2-06 base by ity o f (NEXIUM 11:35: mouth [place] ORAL) 24 daily. Medical Branch atorvastati 2016-05 Yes 20mg Take 20 mg Univers n (LIPITOR) 2-06 by mouth ity of 20 mg 11:35: at [place] tablet 24 bedtime. Medical Branch ESOMEPRAZOL 2016-05 Yes Take 40 mg Univers E MAGNESIUM 2-06 base by ity o f (NEXIUM 11:35: mouth [place] ORAL) 24 daily. Medical Branch atorvastati 2016-05 Yes 20mg Take 20 mg Univers n (LIPITOR) 2-06 by mouth ity of 20 mg 11:35: at [place] tablet 24 bedtime. Medical Branch ESOMEPRAZOL 2016-05 Yes Take 40 mg Univers E MAGNESIUM 2-06 base by ity o f (NEXIUM 11:35: mouth [place] ORAL) 24 daily. Medical Branch atorvastati 2016-05 Yes 20mg Take 20 mg Univers n (LIPITOR) 2-06 by mouth ity of 20 mg 11:35: at [place] tablet 24 bedtime. Medical Branch ESOMEPRAZOL 2016-05 Yes Take 40 mg Univers E MAGNESIUM 2-06 base by ity o f (NEXIUM 11:35: mouth [place] ORAL) 24 daily. Medical Branch atorvastati 2016-05 Yes 20mg Take 20 mg Univers n (LIPITOR) 2-06 by mouth ity of 20 mg 11:35: at [place] tablet 24 bedtime. Medical Branch ESOMEPRAZOL 2016-05 Yes Take 40 mg Univers E MAGNESIUM 2-06 base by ity o f (NEXIUM 11:35: mouth [place] ORAL) 24 daily. Medical Branch atorvastati 2016-05 Yes 20mg Take 20 mg Univers n (LIPITOR) 2-06 by mouth ity of 20 mg 11:35: at [place] tablet 24 bedtime. Medical Branch Procedures Procedure Date / Time Performed Performing Clinician [facility] e ASSIGNMENT OF BENEFITS 2021-05-21 18:31:17 Doctor Unassigned, No [facility] Name Medical Branch Encounters Start End Encounter Admission Attending Care Care Encounter Source Date/Time Date/Time Type Type Clinicians Facility Department ID 2021-05-22 2021-05-22 Letter KERRI Mora [id number] Univers 00:00:00 00:00:00 (Out) Manuela BAILEY [id number] it y of [facility] [id number] Ric as [id number] [facility] 019 [place] 2021-05-21 2021-05-21 Laboratory Only, Ang Db Test [facility] [id number] [id number] Univers 13:15:00 13:30:00 Only Lorena Sanchez uiu [id number] ity of [place] [id number] Ric as LENNY?BLEA [id number] [address] MEDICAL OFFICE BUILDING 2021-05-21 2021-05-21 Outpatient R [facility] [id number] Univers 13:15:00 13:15:[id number] [facility] 2021-05-21 2021-05-21 Outpatient R [facility] [id number] Univers 13:15:00 13:15:00 LORENA beaver o f [facility] 2021-05-21 2021-05-21 Orders Doctor KERRI [id number] Univers 00:00:00 00:00:00 Only Unassigned, LYNN [id number] ity of [place] [facility] [id number] Ric as [id number] [facility] 009 [place] 2021-05-20 2021-05-20 Outpatient [facility] [id number] Univers 14:00:00 14:00:[id number] [facility] 2021-05-20 2021-05-20 Telephone KERRI Rey [id number] Univers 00:00:00 00:00:00 Gail BAILEY [id number] it y of [facility] [id number] Ric as [id number] [facility] 019 Branch 2021-05-19 2021-05-19 Laboratory Only, Ang Db Test [facility] 1.2.8 40.114 [id number] Univers 13:15:00 13:30:00 Only Lorena Sanchez [id number] ity of [place] [id number] Ric as LENYN?BLEA [id number] [place] [address] MEDICAL OFFICE BUILDING 2021-05-19 2021-05-19 Outpatient R TATO [facility] [id number] Univers 13:15:00 12:55:37 LORENA peck [facility] Results This patient has no known results.
[2021-10-18] MEDS ORDERED: MORPHINE 4 MG/ML SYR ONE (23:59)
[2021-10-19] MEDS ORDERED: ONDANSETRON 4 MG/2 ML VIAL ONE
[2021-10-19] MEDS ORDERED: dexAMETHasone 10 MG/ML VIAL ONE
--- NOTE | 2021-10-19 00:51 | ER ---
Nurse's Notes [facility] Name: Jose Weaver Age: 61 yrs Sex: Male : 1960 Arrival Date: 10/18/2021 Time: 23:25 Bed 6 Private MD: Diagnosis: Radiculopathy, lumbosacral region Presentation: 10/18 23:27 Chief complaint: Patient states: "It started a month ago the pain from my leg all the tw5 way up my hip. If I put pressure on my feet my legs hurts."'. Coronavirus screen: Vaccine status: Patient reports receiving the 2nd dose of the covid vaccine. Moderna. Ebola Screen: Patient negative for fever greater than or equal to 101.5 degrees Fahrenheit, and additional compatible Ebola Virus Disease symptoms Patient denies exposure to infectious person. Patient denies travel to an Ebola-affected area in the 21 days before illness onset. 23:27 Method Of Arrival: Ambulatory tw5 23:33 Initial Sepsis Screen: Does the patient meet any 2 criteria? No. Patient's initial tw5 sepsis screen is negative. Does the patient have a suspected source of infection? No. Patient's initial sepsis screen is negative. Risk Assessment: Do you want to hurt yourself or someone else? Patient reports no desire to harm self or others. Onset of symptoms is unknown. 23:33 Acuity: JOHN 3 tw5 Triage Assessment: 23:34 General: Appears in no apparent distress. Behavior is calm, cooperative, appropriate tw5 for age. Pain: Complains of pain in right gluteal fold, right hamstring, posterior aspect of right knee, right calf and right Achilles Pain currently is 10 out of 10 on a pain scale. Historical: - Allergies: 23:34 No Known Allergies; tw5 - PMHx: 23:34 GERD; Sepsis; UTI; tw5 - Immunization history:: Flu vaccine is up to date. - Social history:: Smoking status: Patient/guardian denies using tobacco, the patient reports quitting approximately 7 years ago. - Family history:: not pertinent. - Hospitalizations: : No recent hospitalization is reported. Screenin/10 00:01 Abuse screen: Denies threats or abuse. Denies injuries from another. Nutritional kd3 screening: No deficits noted. Tuberculosis screening: No symptoms or risk factors identified. Fall Risk IV access (20 points). Assessment: 00:00 General: Appears uncomfortable, Behavior is calm, cooperative. Pain: Complains of pain kd3 in right leg and right Achilles and right calf and right hamstring and right gluteal fold. Neuro: Level of Consciousness is awake, alert, obeys commands, Oriented to person, place, time, situation. Respiratory: Airway is patent Trachea midline Respiratory effort is even, unlabored. 00:27 Reassessment: Patient and/or family updated on plan of care and expected duration. Pain kd3 level reassessed. Patient is alert, oriented x 3, equal unlabored respirations, skin warm/dry/pink. pt states that the pain is a little better but still there Patient states symptoms have improved. Vital Signs: 10/18 23:27 Weight 86.18 kg; Height 6 ft. 0 in. (182.88 cm); Pain 10/10; tw5 23:33 BP 149 / 87; Pulse 97; Resp 18; Temp 98.4(O); Pulse Ox 100% ; tw5 10/19 00:03 BP 136 / 79; Pulse 86; Resp 17; Pulse Ox 96% on R/A; kd3 00:45 BP 144 / 92; Pulse 75; Resp 17; Pulse Ox 95% on R/A; vc1 06 23:27 Body Mass Index 25.77 (86.18 kg, 182.88 cm) tw5 ED Course: 10/18 23:25 Patient arrived in ED. ja2 23:27 Brooks Carey MD is Attending Physician. rn 23:34 Triage completed. tw5 23:34 Arm band placed on. tw5 23:45 Lissette Bryson, JUANJO is Primary Nurse. kd3 10/19 00:01 Patient has correct armband on for positive identification. kd3 00:01 Inserted saline lock: 20 gauge in right antecubital area, using aseptic technique. kd3 01:06 No provider procedures requiring assistance completed. IV discontinued, intact, vc1 bleeding controlled, No redness/swelling at site. Pressure dressing applied. Administered Medications: 10/18 23:53 Drug: morphine 4 mg Route: IVP; Infused Over: 4 mins; Site: right antecubital; kd3 10/19 00:26 Follow up: Response: No adverse reaction kd3 10/18 23:53 Drug: Zofran (Ondansetron) 4 mg Route: IVP; Site: right antecubital; kd3 10/19 00:26 Follow up: Response: No adverse reaction kd3 10/18 23:54 Drug: Decadron - Dexamethasone 10 mg Route: IVP; Site: right antecubital; kd3 10/19 00:26 Follow up: Response: No adverse reaction kd3 01:07 Drug: Lidoderm Patch 5 % (700 mg/patch) 1 patches {Note: right upper buttock.} Route: vc1 Topical; Site: affected area; Medication: 00:00 VIS not applicable for this client. kd3 Outcome: 00:51 Discharge ordered by . rn 01:06 Discharged to home ambulatory. vc1 01:06 Condition: good 01:06 Discharge instructions given to patient, Instructed on discharge instructions, follow up and referral plans. medication usage, Demonstrated understanding of instructions, follow-up care, medications, Prescriptions given X 1. 01:08 Patient left the ED. vc1 Signatures: Brooks Carey MD MD rn Alexander, Jessica ja2 Wood, Tiffany 5 Lissette Bryson RN RN kd3 Nisreen Bill RN RN vc1
--- NOTE | 2021-10-19 00:51 | EDPHYS ---
Physician Documentation [facility] Name: Jose Weaver Age: 61 yrs Sex: Male : 1960 Arrival Date: 10/18/2021 Time: 23:25 Bed 6 Private MD: ED Physician Brooks Carey HPI: 10/18 23:35 This 61 yrs old Male presents to ER via Ambulatory with complaints of Hip rn Pain, Leg Pain. 23:35 The patient presents with pain. The complaints affect the right leg. rn 23:35 Onset: The symptoms/episode began/occurred 1 month(s) ago. Modifying factors: The rn symptoms are alleviated by nothing. the symptoms are aggravated by movement, weight bearing. Associated signs and symptoms: Pertinent negatives fever, swelling, warmth, weakness. Severity of symptoms: At their worst the symptoms were moderate, in the emergency department the symptoms are actually worse. The patient has experienced similar episodes in the past. The patient has been recently seen by a physician:. Pt reports 1 month of nerve pain in right leg, has hx of sciatica, no injury, no fever, no bowel/bladder issues. Pain slowly worsening. Seen by pcp today, prescribed gabapentin and muscle relaxer, just filled today, states not helping so came in for pain control. . Historical: - Allergies: 23:34 No Known Allergies; tw5 - PMHx: 23:34 GERD; Sepsis; UTI; tw5 - Immunization history:: Flu vaccine is up to date. - Social history:: Smoking status: Patient/guardian denies using tobacco, the patient reports quitting approximately 7 years ago. - Family history:: not pertinent. - Hospitalizations: : No recent hospitalization is reported. ROS: 23:35 Constitutional: Negative for fever, chills, and weight loss, Cardiovascular: Negative rn for chest pain, palpitations, and edema, Respiratory: Negative for shortness of breath, cough, wheezing, and pleuritic chest pain, Abdomen/GI: Negative for abdominal pain, nausea, vomiting, diarrhea, and constipation, Back: Negative for injury, + for right lower back and buttocks pain : Negative for injury, bleeding, discharge, and swelling, MS/Extremity: + right leg pain Skin: Negative for injury, rash, and discoloration, Neuro: Negative for headache, weakness, numbness, tingling, and seizure. 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 Back: No spinal tenderness. No costovertebral tenderness. Full range of motion. Skin: Warm, dry MS/ Extremity: Pulses equal, no cyanosis. Neurovascular intact. Full, normal range of motion. Equal circumference. Neuro: Awake and alert, Motor strength 5/5 in lower extremities. Sensory grossly intact. Normal gait. Vital Signs: 23:27 Weight 86.18 kg; Height 6 ft. 0 in. (182.88 cm); Pain 10/10; tw5 23:33 BP 149 / 87; Pulse 97; Resp 18; Temp 98.4(O); Pulse Ox 100% ; tw5 10/19 00:03 BP 136 / 79; Pulse 86; Resp 17; Pulse Ox 96% on R/A; kd3 00:45 BP 144 / 92; Pulse 75; Resp 17; Pulse Ox 95% on R/A; vc1 10/18 23:27 Body Mass Index 25.77 (86.18 kg, 182.88 cm) tw5 MDM: 10/18 23:28 Patient medically screened. rn 10/19 00:49 Differential diagnosis: sciatica, radiculopathy. Data reviewed: vital signs, nurses rn notes, and as a result, I will discharge patient. Counseling: I had a detailed discussion with the patient and/or guardian regarding: the historical points, exam findings, and any diagnostic results supporting the discharge/admit diagnosis, the need for outpatient follow up, to return to the emergency department if symptoms worsen or persist or if there are any questions or concerns that arise at home. Response to treatment: the patient's symptoms have markedly improved after treatment, and as a result, I will discharge patient. Special discussion: I discussed with the patient/guardian in detail that at this point there is no indication for admission to the hospital. It is understood, however, that if the symptoms persist or worsen the patient needs to return immediately for re-evaluation. 10/18 23:33 Order name: IV Start; Complete Time: 23:52 rn Administered Medications: 10/18 23:53 Drug: morphine 4 mg Route: IVP; Infused Over: 4 mins; Site: right antecubital; kd3 10/19 00:26 Follow up: Response: No adverse reaction kd3 10/18 23:53 Drug: Zofran (Ondansetron) 4 mg Route: IVP; Site: right antecubital; kd3 10/19 00:26 Follow up: Response: No adverse reaction kd3 10/18 23:54 Drug: Decadron - Dexamethasone 10 mg Route: IVP; Site: right antecubital; kd3 10/19 00:26 Follow up: Response: No adverse reaction kd3 01:07 Drug: Lidoderm Patch 5 % (700 mg/patch) 1 patches {Note: right upper buttock.} Route: vc1 Topical; Site: affected area; Disposition Summary: 10/19/21 00:51 Discharge Ordered Location: Home rn Problem: an ongoing problem rn Symptoms: have improved rn Condition: Stable rn Diagnosis - Radiculopathy, lumbosacral region rn Followup: rn - With: Private Physician - When: As needed - Reason: Recheck today's complaints, Re-evaluation by your physician Discharge Instructions: - Discharge Summary Sheet rn - Lumbosacral Radiculopathy rn Forms: - Medication Reconciliation Form rn - Thank You Letter rn - 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
[2021-10-19] MEDS ORDERED: LIDOCAINE 4% PATCH ONE (01:08)
[2021-10-19 01:14] VITALS: TEMP 98.4
[2021-10-19 01:17] VITALS: BP 144/92; O2SAT 95
== END 2021-10-19 01:08 | disposition home or self-care (01) ==
LOC: ER 23:23
DX: M54.17 Radiculopathy, lumbosacral region (principal); M25.559 Pain in unspecified hip; M79.606 Pain in leg, unspecified
CPT/HCPCS: 96375; 96374; 99283; J2001